=== PATIENT | female | born 1985 | race Caucasian/White ===

== ENCOUNTER 2017-05-20 01:26 | Emergency (ER) | payer OTHER ==
[~2017-05-20] VITALS: Ht 170.2 cm; Wt 77.1 kg
[~2017-05-20 01:26] MED LIST: BACTRIM DS 8001 TAB PO; CLEOCIN HCL300 M1 PO; GEODON 40MG CAP40 MG PO; TEGRETOL200 MG PO; TRAMADOL HCL50 M1 PO
--- NOTE | 2017-05-20 03:19 | ED HEADACHE COMPLAINT ---
History of Present Illness General Chief Complaint: Headache Stated Complaint: PT C/O MIGRAINE HX OF SAME Source: patient Exam Limitations: clinical condition Vital Signs & Intake/Output Vital Signs & Intake/Output ED Intake and Output 05/21 0000 05/20 1200 Intake Total Output Total Balance Patient 170 lb Weight Weight Reported by Patient Measurement Method Allergies Coded Allergies: Penicillins (Severe, ANAPHYLAXIS 04/23/16) Reconcile Medications Carbamazepine (Tegretol) 200 MG TAB 1,200 MG PO QPM MENTAL HEALTH (Reported) Clindamycin HCl (Cleocin HCl) 300 MG CAPSULE 1 CAP PO Q6 CELLULITIS Tramadol HCl 50 MG TABLET 1 TAB PO Q6P PRN LEG PAIN Ziprasidone Hydrochloride (Geodon 40MG Cap) 40 MG CAP 80 MG PO QPM MENTAL HEALTH (Reported) Triage Note: PT TO ED C/O 08/18 MIGRAINE. PT STATES SHE HAS HX OF MIGRAINES. PT STATES SHE TOOK IMMITREX THIS EVENING AND IBUPROFEN WITHOUT RELIEF. PT C/O NAUSEA AND VOMITING TONIGHT. +PHOTOSENSITIVITY. Triage Nurses Notes Reviewed? yes : No Patient currently breastfeeds: No HPI: 31 yo F presents to the ED for evaluation of migraine headache. She had been experiencing a constant headache since 5pm yesterday. She has a history of experiencing these headaches several times a week. She denies any sensation of aura prior to getting her symptoms and any relation of her menses to the headaches. She complains the pain has been getting worse, non radiating and bilateral. She is experiencing photophobia with light and movement aggravating her headache. She has taken Imitrex and ibuprofen but that hasn't provided her any relief. She reports experiencing a little nausea and had an episode of vomitting an hour ago. (ALICIA LOWE MD) Past History Travel History Traveled to [place] past 21 day No Medical History Any Pertinent Medical History? 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 No (ALICIA LOWE MD) Review of Systems Review of Systems Constitutional: Reports: no symptoms. Respiratory: Reports: no symptoms. Cardiovascular: Reports: no symptoms. Gastrointestinal/Abdominal: Reports: no symptoms. Neurological/Psychological: Reports: headache. (ALICIA LOWE MD) Physical Exam Physical Exam General Appearance: well developed/nourished, moderate distress Head: atraumatic, normal appearance Eyes: Bilateral: photophobia. Cranial Nerves: normal hearing, normal speech Core Measures Severe Sepsis Present: No Septic Shock Present: No (ALICIA LOWE MD) Progress Differential Diagnosis: migraine Plan of Care: Given toradol and phenergen. Patient is responding well to it. (ALICIA LOWE MD) Departure Departure Disposition: HOME OR SELF CARE Condition: Stable Clinical Impression Primary Impression: Migraine Qualifiers: Migraine type: without aura Status migrainosus presence: without status migrainosus Referrals: ALON MATA MD PATIENT HAS NO PRIMARY CARE DR (PCP/Family) Additional Instructions: Follow up with Dr Mata for proper evaluation of migraine headaches. Return for any worsening symptoms or concerns Departure Forms: Customer Survey General Discharge Information (ALICIA LOWE MD) Resident Co-Sign Statement Statement: ED Attending supervision documentation- [x] I saw and evaluated the patient. I have also reviewed all the pertinent lab results and diagnostic results. I agree with the findings and the plan of care as documented in the Resident's documentation. [] I have reviewed the ED Record and agree with the Resident's documentation. [] Additions or exceptions (if any) to the Resident's note and plan are summarized below: [] (TRACI BAUTISTA,JAVON Thompson) ED Attending Observation Initial Observation Note: I have seen and personally examined MICHELET TANG on 05/20/17 at 0523. I agree with the current emergency department documentation. The disposition (admission or discharge) is uncertain at this time, she needs a period of observation for the following reason(s): The ED Nurse caring for this patient has been personally informed as to what the patient is being observed for. (ALICIA LOWE MD)
[2017-05-20 05:36] VITALS: BP 143/67
== END 2017-05-20 05:37 ==
LOC: ERH 01:26
DX: G43.909 Migraine, unspecified, not intractable, without status migrainosus (principal)
CPT/HCPCS: 96372; J1885; J2550

== ENCOUNTER 2017-10-29 04:32 | Inpatient (IN) | payer OTHER ==
[~2017-10-29] VITALS: Ht 162.6 cm; Wt 78.9 kg
[~2017-10-29 04:32] MED LIST changes: +CHLORDIAZEPOXID25 M3 PO; +GEODON20 M1 PO; +LITHIUM CARBON300 M5 PO; +NICORELIEF2 MG PO; +NICOTINE PATCH1 EAC3 TOP; +TEGRETOL200 M1; -TEGRETOL200 MG PO
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
[2017-10-29 05:04] LABS: ABSOLUTE BASOPHIL COUNT 0.1 /CUMM (0.0-0.2); ABSOLUTE EOSINOPHIL COUNT 0.1 /CUMM (0.0-0.7); ABSOLUTE GRANULOCYTE CT 12.6 /CUMM (1.4-6.5); ABSOLUTE MONOCYTE COUNT 1.1 /CUMM (0.10-0.60); BASOPHIL % 0.4 % (0.0-2.0); EOSINOPHIL % 0.7 % (0-5); HEMATOCRIT 39.8 % (37-47); MEAN CORPUSCULAR HGB 28.1 PG (27.0-31.0); MEAN CORPUSCULAR HGB CONC 33.8 G/DL (33.0-37.0); MEAN PLATELET VOLUME 7.9 FL (7.4-10.4); PLATELET COUNT 472 /CUMM (130-400); RBC DISTRIBUTION WIDTH 14.4 % (11.5-14.5); WHITE BLOOD CELL COUNT 16.9 /CUMM (4.8-10.8)
[2017-10-29 05:06] LABS: GRANULOCYTE % 74.5 % (42.2-75.2)
--- NOTE | 2017-10-29 05:33 | RADIOLOGY REPORT ---
EXAMINATION: CHEST 1 VIEW CLINICAL INFORMATION: Trauma. Fracture. COMPARISON: October 07, 2017. TECHNIQUE: An AP view of the chest is provided. FINDINGS: The cardiac silhouette is not enlarged. The mediastinal and hilar contours are unremarkable. There are neither pleural effusions nor pneumothoraces. There are no consolidations. The osseous structures are unremarkable. IMPRESSION: No evidence for acute disease.
--- NOTE | 2017-10-29 05:33 | RADIOLOGY REPORT ---
EXAMINATION: LEFT ANKLE 3 VIEWS CLINICAL INFORMATION: Left ankle pain. COMPARISON: None. TECHNIQUE: AP, lateral, oblique views of the left ankle were obtained. FINDINGS: There are oblique distal left tibial and fibular fractures. Alignment is adequate. There is soft tissue swelling about the ankle. There is no ankle joint effusion. IMPRESSION: Distal left tibial and fibular fractures.
--- NOTE | 2017-10-29 06:27 | RADIOLOGY REPORT ---
EXAMINATION: XR TIBIA AND FIBULA, LEFT CLINICAL INFORMATION: Pain after fall. COMPARISON: Same day left ankle radiographs. TECHNIQUE: AP and lateral views of the left tibia and fibula were obtained. FINDINGS: Partially visualized is the known distal left tibial fracture. The fibular fracture is not included on this view. An overlying cast is in place. IMPRESSION: Adequate alignment of distal left tibial fracture with overlying cast in place.
--- NOTE | 2017-10-29 06:30 | CT SCAN REPORT ---
EXAMINATION: CT HEAD WITHOUT CONTRAST CLINICAL INFORMATION: Pain following trauma. COMPARISON: October 08, 2017. TECHNIQUE: Contiguous axial images of the brain were obtained without IV contrast. DLP: 724 mGy-cm. FINDINGS: There are no pathologic extra-axial fluid collections. The lateral, third, fourth ventricles are nondilated and concordant with the appearance of the sulci. There is no evidence for acute intraparenchymal hemorrhage or infarct. There is neither mass nor mass effect. There is no shift of midline structures. There is mild mucosal thickening to the left maxillary sinus. There is patchy ethmoid sinus opacification. The paranasal sinuses and mastoid air cells are otherwise clear. There are no osseous lesions. IMPRESSION: No evidence for acute intracranial injury.
--- NOTE | 2017-10-29 08:45 | Cons- Orthopedic ---
Torrey Wei 10/29/17 0806: General Information and HPI Consulting Request Date of Consult: 10/29/17 Requested By: Dr. Tolentino in ER Reason for Consult: Left distal tib/fib fx Source of Information: patient Exam Limitations: intoxication History of Present Illness: This is a 32 year-old female with a history of bipolar and recent hospitalization for suicidal attempt with Tegretol overdose who presents to the emergency room with ankle pain status post fall secondary to possible seizure. Patient reports she was admitted roughly 3 weeks ago at [place] and transferred to [place] for suicial attempt and was started on [place], however due to elevated levels, patient was instructed not to take [place] for 2 days. She reports seizure-like activity and multiple falls since her discharge and states while she smoking a cigarete at around 1:00 this morning, she had another seizure-like episode where she fell backwards then fell forward landing on her ankle. She states she could not get up and was brought in by EMS from her mothers house. She also reports snorting a bag of heroin at 5:30 last night. She denies taking any other illict drugs. En route to the hospital, patient had a tonic-clonic seizure according to EMS. She states when she was 14 years-old she had a known seizure after taking risperidone for depression. She reports ankle pain, which is well controlled. Denies any numbness or tingling. Allergies/Medications Allergies: Coded Allergies: Penicillins (Severe, ANAPHYLAXIS 04/23/16) Home Med List: Chlordiazepoxide HCl 25 MG CAPSULE 50 MG PO Q6 WITHDRAWAL [place] Carbonate 300 MG TABLET 1 TAB PO TID BIPOLAR DISORDER Nicotine (Nicotine Patch) 21 MG/24 HOUR PATCH.TD24 21 MG TOP DAILY SMOKING CESSATION Nicotine (Nicorelief) 2 MG GUM 2 MG PO Q2P PRN tobacco craving Tramadol HCl 50 MG TABLET 1 TAB PO Q6P PRN LEG PAIN Ziprasidone Hydrochloride (Geodon 40MG Cap) 40 MG CAP 80 MG PO QPM MENTAL HEALTH (Reported) Ziprasidone Hydrochloride (Geodon) 20 MG CAPSULE 20 MG PO BID PRN AGITAT/ HALLUCINATION/IRRITABIL Twice daily PRN. Hold for prolonged QTc. Current Medications: Current Medications Sig/Wanda Start time Last Medication Dose Route Stop Time Status Admin Acetaminophen 1,000 MG ONCE ONE 10/29 0500 DC 10/29 N/A 1 UNIT IV 10/29 Acetaminophen 0 .STK-MED ONE 10/29 455 DC IV Morphine Sulfate 4 MG ONCE ONE 10/29 0545 DC 10/29 IV 10/29 546 0539 Morphine Sulfate 0 .STK-MED ONE 10/29 530 DC .ROUTE Past History Medical History Neurological: migraine, seizure EENT: NONE Cardiovascular: NONE Respiratory: NONE Gastrointestinal: NONE Hepatic: NONE Renal: NONE Musculoskeletal: NONE Psychiatric: anxiety, bipolar disease, depression, insomnia Endocrine: NONE Blood Disorders: NONE Cancer(s): NONE 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: 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 Surgical History Pertinent Surgical History: none Psychosocial History Smoking Status: Current Some Day Smoker Illicit Drug Use: heroin Exam & Diagnostic Data Vital Signs and I&O Vital Signs Date Time Temp Pulse Resp B/P B/P Pulse O2 O2 Flow FiO2 Mean Ox Delivery Rate 10/29 0542 96.5 99 20 134/65 98 Room Air 10/29 045 100 Room Air Room Air 10/29 435 96.1 120 20 176/101 100 Room Air Room Air Intake & Output 10/29 1600 10/29 0800 10/29 0000 10/28 1600 10/28 0800 10/28 0000 Intake Total Output Total Balance Patient 200 lb Weight Physical Exam: Gen: Post-ictal, semi-confused in NAD Cardiac: S1S2 noted Lungs: Fair inspiratory effort, CTAB Abd: Soft, nondistended, nontender Ext: LLE with sugartong splint and sheree wrap in place, warm and soft, able to wiggle toe without discomfort. RLE is without edema or calf tenderness. Last 24 Hours of Labs: Laboratory Tests 10/29 10/29 0810 0535 Chemistry Troponin I Pending Toxicology Urine Opiates Screen (>2000 NG/ML) > 4000.00 H Methadone Screen (>300 NG/ML) > 735 H Barbiturate Screen (>200 NG/ML) < 60 Ur Phencyclidine Scrn (>25 NG/ML) 7.00 Amphetamines Screen (>1000 NG/ML) < 100 U Benzodiazepines Scrn (>200 NG/ML) 273 H Urine Cocaine Screen (>300 NG/ML) > 1000 H Urine Cannabis Screen (>50 NG/ML) < 5.00 10/295 0436 Chemistry Sodium (137 - 145 mmol/L) 141 Potassium (3.5 - 5.1 mmol/L) 4.7 Chloride (98 - 107 mmol/L) 102 Carbon Dioxide (22 - 30 mmol/L) 17 L Anion Gap (5 - 16) 21 H BUN (7 - 17 mg/dL) 19 H Creatinine (0.5 - 1.0 mg/dL) 0.6 Estimated GFR (>60 ml/min) > 60 BUN/Creatinine Ratio (7 - 25 %) 31.7 H Glucose (65 - 99 mg/dL) 137 H Calcium (8.4 - 10.2 mg/dL) 10.5 H Total Bilirubin (0.2 - 1.3 mg/dL) 0.5 AST (14 - 36 U/L) 36 ALT (9 - 52 U/L) 20 Alkaline Phosphatase (<127 U/L) 61 Total Protein (6.3 - 8.2 g/dL) 8.9 H Albumin (3.5 - 5.0 g/dL) 4.8 Globulin (1.9 - 4.2 gm/dL) 4.1 Albumin/Globulin Ratio (1.1 - 2.2 %) 1.2 Prolactin (3.0 - 18.6 ng/mL) 148.0 H Hematology CBC w Diff MAN DIFF ORDERED WBC (4.8 - 10.8 /CUMM) 16.9 H RBC (4.20 - 5.40 /CUMM) 4.80 Hgb (12.0 - 16.0 G/DL) 13.5 Hct (37 - 47 %) 39.8 MCV (81.0 - 99.0 FL) 83.0 MCH (27.0 - 31.0 PG) 28.1 RDW (11.5 - 14.5 %) 14.4 Plt Count (130 - 400 /CUMM) 472 H MPV (7.4 - 10.4 FL) 7.9 Gran % (42.2 - 75.2 %) 74.5 Lymphocytes % (20.5 - 51.1 %) 18.0 L Monocytes % (1.7 - 9.3 %) 6.4 Eosinophils % (0 - 5 %) 0.7 Basophils % (0.0 - 2.0 %) 0.4 Absolute Granulocytes (1.4 - 6.5 /CUMM) 12.6 H Segmented Neutrophils (42.2 - 75.2 %) 78 H Absolute Lymphocytes (1.2 - 3.4 /CUMM) 3.0 Lymphocytes (20.5 - 51.1 %) 17 L Monocytes (1.7 - 9.3 %) 5 Absolute Monocytes (0.10 - 0.60 /CUMM) 1.1 H Absolute Eosinophils (0.0 - 0.7 /CUMM) 0.1 Absolute Basophils (0.0 - 0.2 /CUMM) 0.1 Platelet Estimate (ADEQUATE) INCREASED Normocytic RBCs VERIFIED Normochromic RBCs VERIFIED PUBS MCHC (33.0 - 37.0 G/DL) 33.8 Other Body Source Fld Total RBCs Counted (%) 100 Toxicology [place] (0.6 - 1.2 mmol/L) 1.0 Serum Alcohol (<10 MG/DL) < 10.0 Urines Urine Test NEGATIVE Imaging Results: SERVICE DATE: 10/29/17 EXAM TYPE: RAD - XRY-ANKLE 3 OR MORE VIEWS L EXAMINATION: LEFT ANKLE 3 VIEWS CLINICAL INFORMATION: Left ankle pain. COMPARISON: None. TECHNIQUE: AP, lateral, oblique views of the left ankle were obtained. FINDINGS: There are oblique distal left tibial and fibular fractures. Alignment is adequate. There is soft tissue swelling about the ankle. There is no ankle joint effusion. IMPRESSION: Distal left tibial and fibular fractures. SERVICE DATE: 10/29/17 EXAM TYPE: RAD - XRY-PORTABLE CHEST XRAY EXAMINATION: CHEST 1 VIEW CLINICAL INFORMATION: Trauma. Fracture. COMPARISON: October 07, 2017. TECHNIQUE: An AP view of the chest is provided. FINDINGS: The cardiac silhouette is not enlarged. The mediastinal and hilar contours are unremarkable. There are neither pleural effusions nor pneumothoraces. There are no consolidations. The osseous structures are unremarkable. IMPRESSION: No evidence for acute disease. SERVICE DATE: 10/29/17 EXAM TYPE: RAD - [id number], LEFT EXAMINATION: XR TIBIA AND FIBULA, LEFT CLINICAL INFORMATION: Pain after fall. COMPARISON: Same day left ankle radiographs. TECHNIQUE: AP and lateral views of the left tibia and fibula were obtained. FINDINGS: Partially visualized is the known distal left tibial fracture. The fibular fracture is not included on this view. An overlying cast is in place. IMPRESSION: Adequate alignment of distal left tibial fracture with overlying cast in place. SERVICE DATE: 10/29/17 EXAM TYPE: CAT - CT HEAD WO IV CONTRAST EXAMINATION: CT HEAD WITHOUT CONTRAST CLINICAL INFORMATION: Pain following trauma. COMPARISON: October 08, 2017. TECHNIQUE: Contiguous axial images of the brain were obtained without IV contrast. DLP: 724 mGy-cm. FINDINGS: There are no pathologic extra-axial fluid collections. The lateral, third, fourth ventricles are nondilated and concordant with the appearance of the sulci. There is no evidence for acute intraparenchymal hemorrhage or infarct. There is neither mass nor mass effect. There is no shift of midline structures. There is mild mucosal thickening to the left maxillary sinus. There is patchy ethmoid sinus opacification. The paranasal sinuses and mastoid air cells are otherwise clear. There are no osseous lesions. IMPRESSION: No evidence for acute intracranial injury. Assessment/Plan Assessment/Plan This is a 32 year-old female with a history of bipolar disorder, suicidal attempt and substance abuse who presents with left distal tibular/fibula fracture status post fall due to possible underlying seizure disorder vs lithium toxicity. She had a tonic-clonic seizure en route to [facility]. Fracture was reduced and splinted in ER, however she is at risk for compartment syndrome and requires surgical intervention. Urine toxicity confirms polysubstance abuse including opiates and cocaine. Admit to medicine Once cleared, proceed to OR for ORIF of left tib/fib Keep splint in place NWB of LLE Neuro checks q6 for compartment syndrome Bates for comfort Keep NPO on IVF Will continue to closely follow D/w Dr. Cordova Problem List: 1. Cocaine abuse 2. Tibia/fibula fracture, shaft 3. Heroin abuse 4. Seizure Consult Acknowledgment - Thank you for your consult request. Nicole Cordova MD 10/29/17 1151: Assessment/Plan Consult Acknowledgment - Thank you for your consult request. Attending MD Review Statement Attending Statement Attending MD Statement: examined this patient, discuss w/resident/PA/COOK RELIEF, agreed w/resident/PA/COOK RELIEF, reviewed images Attending Assessment/Plan: Patient seen and examined. Agree with PA assessment. Splint to LLE, elevated on several pillows. Patient resting comfortably but has intermittent spasms causing her whole body to react, resulting in leg pain. She says she has been having these "spasms" for a day or so, and that is what caused her to fall last night. She reports polysubstance abuse, saying she snorted a bag of "dope" yesterday. Does not recall cocaine use, but says it was probably mixed in the heroin she snorted. Recently discharge from inpatient program at [facility]. We discussed her injury and surgical plan. Also discussed non-operative treatment in a long leg cast, but would recommend surgical stabilization given the fracture pattern, her age, and activity level. Discussed risk for compartment syndrome and need for urgent surgical intervention should that occur. Will delay surgery given numerous drugs currently in her system. Per discussion with anesthesia, she is a risk of hemodynamic instability given recent cocaine use. Also pending neurology and psychiatic evaluation. On exam, she is resting comfortable. Splint in place, clean and dry. Able to actively flex/extend great toe with minimal pain; no pain with passive extension of great toe. SILT over toes and first webspace. Will continue to monitor; q3hr compartment checks. Pain control. Elevation and icing of left leg, do not remove splint. NWB LLE Please keep NPO should patient patient need urgent surgical intervention for compartment syndrome. Tentative plan for OR tomorrow for tibial nail pending medical optimization.
--- NOTE | 2017-10-29 09:32 | History & Physical ---
Shanika Reyna 10/29/17 0857: General Information and HPI MD Statement: I have seen and personally examined MICHELET TANG and documented this H&P. The patient is a 32 year old F who presented with a patient stated chief complaint of fall and seizure Source of Information: patient Exam Limitations: intoxication History of Present Illness: Patient is a 32-year-old woman with past medical history significant for bipolar disease, recently hospitalized for suicidal attempt on Tegretol overdose, history of opioid abuse/dependence on methadone, history of benzos and cocaine abuse presented to the ER through an ambulance after a fall and tonic- clonic seizure. As mentioned above patient was recently admitted at [facility] after suicidal attempt on Tegretol overdose remain in the facility for almost 3 weeks. Patient was started on lithium about 6 weeks ago, and that was discontinued before discharge due to elevated levels and was instructed to restart the medication after getting the levels checked. Patient was discharged home yesterday. Patient mentioned that she has been having jerking episodes/seizure-like activity for a long time. Yesterday she tripped and fell backwards after jerking episode. Denied any dizziness lightheadedness loss of consciousness before and after the fall. Pt could not get up and was brought in by EMS from her mothers house, on her way to the ER patient had one episode of tonic-clonic seizure (of which patient had no recollection).On inquiring more , pt reported that she had seizure-like activity while she was on risperidone. Patient also confessed that she used a bag of heroin at around 5:30 last night, denied any other illicit drug use. Will. Upon arrival in the ER patient was awake with wobbly speech and incontinent of urine, speech was more clear afterwards. She had severe left lower extremity pain. X-ray of the left ankle revealed distan tibial and fibular fractures. Other review of system is negative. Denied any chest discomfort or palpitations denied any nausea vomiting abdominal discomfort denied any urinary bowel habit changes. Allergies/Medications Allergies: Coded Allergies: Penicillins (Severe, ANAPHYLAXIS 04/23/16) Home Med list Chlordiazepoxide HCl 25 MG CAPSULE 50 MG PO Q6 WITHDRAWAL [place] Carbonate 300 MG TABLET 1 TAB PO TID BIPOLAR DISORDER Nicotine (Nicotine Patch) 21 MG/24 HOUR PATCH.TD24 21 MG TOP DAILY SMOKING CESSATION Nicotine (Nicorelief) 2 MG GUM 2 MG PO Q2P PRN tobacco craving Tramadol HCl 50 MG TABLET 1 TAB PO Q6P PRN LEG PAIN Ziprasidone Hydrochloride (Geodon 40MG Cap) 40 MG CAP 80 MG PO QPM MENTAL HEALTH (Reported) Ziprasidone Hydrochloride (Geodon) 20 MG CAPSULE 20 MG PO BID PRN AGITAT/ HALLUCINATION/IRRITABIL Twice daily PRN. Hold for prolonged QTc. 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 EENTM: Denies: blurred vision, double vision, visual changes. Respiratory: Denies: hemoptysis, orthopnea, short of breath. GI: Denies: abdominal pain, bloating, constipation, diarrhea. Genitourinary: Denies: dysuria, frequency, hematuria, hesitation. Musculoskeletal: Denies: gout, joint pain, joint swelling. Skin: Denies: change in skin color, change in hair/nails, dryness. Neurological/Psychological: Denies: ataxia, cognitive dysfunction, confusion. Hematologic/Endocrine: Denies: bruising, bleeding, polyuria. Exam & Diagnostic Data Last 24 Hrs of Vital Signs/I&O Vital Signs Date Time Temp Pulse Resp B/P B/P Pulse O2 O2 Flow FiO2 Mean Ox Delivery Rate 10/29 0542 96.5 99 20 134/65 98 Room Air 10/29 0454 100 Room Air Room Air 10/29 0435 96.1 120 20 176/101 100 Room Air Room Air Intake & Output 10/29 1600 10/29 0800 10/29 0000 Intake Total Output Total Balance Patient 200 lb Weight Physical Exam General Appearance Alert, Oriented X3 Skin No Rashes, No Breakdown HEENT Atraumatic, PERRLA, EOMI Neck Supple, No JVD Lymphatic Axillary nl, Cervical nl Cardiovascular Regular Rate, Normal S1, Normal S2 Lungs Clear to Auscultation, Normal Air Movement Abdomen Normal Bowel Sounds, Soft, No Tenderness Neurological Normal Gait, Normal Speech, Strength at 5/5 X4 Ext Extremities No Clubbing, No Edema Assessment/Plan Assessment: Patient is a 32-year-old woman with past medical history significant for bipolar disease, recently hospitalized for suicidal attempt on Tegretol overdose, history of opioid abuse/dependence on methadone, history of benzos and cocaine abuse presented to the ER through an ambulance after a fall and tonic- clonic seizure. Vitals on admission temperature 96.1, pulse 120, respiratory 20, blood pressure 117/101 on room air Pertinent labs leukocytosis 16.9 without any bandemia H&H stable 13.5/39.8, elevated platelet count 472, normal sodium and potassium levels, elevated anion gap of 21, corrected calcium level:9.9, elevated prolactin levels 148 Urine toxicology positive for opioids(used heroin yesterday), methadone, but it has been sent cocaine. EKG showed normal sinus rhythm with QTC of 463, first set of troponin negative. Head CT scan :No evidence for acute intracranial injury. Chest x-ray:No evidence for acute disease X-ray of ankle :Distal left tibial and fibular fractures. Assessment and plan Patient is a 32-year-old woman with past medical history significant for bipolar disease, recently hospitalized for suicidal attempt on Tegretol overdose, history of opioid abuse/dependence on methadone, history of benzos and cocaine abuse presented to the ER through an ambulance after a fall and tonic- clonic seizure Problem list: 1. left Distal left tibial and fibular fractures status post mechanical fall 2. History of recent suicidal attempt on Tegretol overdose. 3. History of bipolar disease 4. History of opioid abuse/dependence on methadone. 5. History of cocaine and benzodiazepines abuse. 6. History of anxiety and depression plan 1. left Distal left tibial and fibular fractures status post mechanical fall * We'll admit the patient to general floor. * Fracture has been reduced in the ER,Patient has been evaluated by orthopedic surgery, as patient is at high risk of abutment syndrome she requires surgical intervention, however surgery won't be done as her urine toxicology is positive for polysubstance abuse including heroin, cocaine and benzodiazepines. * Patient will be managed medically on the floors for now and once cleared will have ORIF of left tib/fib. * Continue management as per orthopedic recommendations. * Keep splint and placed, nonweightbearing of the lower left extremity, continue with neurochecks every 6 hours for compartment syndrome. * We'll keep the patient nothing by mouth for now. * Check coags, CK level * Continue with IV fluids. * Adequate pain control with scheduled IV Tylenol, avoid any opioids. 2. Tonic-clonic seizure(questionable lithium toxicity/polysubstance abuse) * Obtain EEG * Neurology consult has been obtained to Dr. Robbins, will follow the recommendations. * Maintain seizure and aspiration precautions 3.History of recent suicidal attempt on Tegretol overdose with history of bipolar disease. * Psych consult has been obtained for further recommendations. 4. History of opioid abuse/dependence on methadone. * [facility] * Continue methadone 90 mg daily DVT prophylaxis with Lovenox Moderate to severe pain controlled with Tylenol Patient is full code As Ranked By This Provider Problem List: 1. Methadone dependence 2. Seizure 3. Heroin abuse 4. Cocaine abuse 5. Tibia/fibula fracture, shaft Qualifiers Encounter type: initial encounter Fracture type: closed Laterality: left Qualified Codes: S82.202A - Unspecified fracture of shaft of left tibia, initial encounter for closed fracture; S82.402A - Unspecified fracture of shaft of left fibula, initial encounter for closed fracture Core Measures/Misc (07/26) Acute Coronary Syndrome ACS Diagnosis: No Congestive Heart Failure Congestive Heart Failure Diagnosis No Cerebrovascular Accident CVA/TIA Diagnosis: No VTE (View Protocol) VTE Risk Factors No risk factors No Mechanical VTE Prophylaxis d/t LowRisk-No Interven Req'd No VTE Pharm Prophylaxis d/t LowRisk-No Interven Req'd Sepsis (View protocol) Sepsis Present: No Resident Review Statement Resident Statement: examined this patient Gaston Poe MD 10/30/17 1213: Attending MD Review Statement Attending Statement Attending MD Statement: examined this patient, discuss w/resident/PA/HOUSEKEEPER MANAGER, agreed w/resident/PA/HOUSEKEEPER MANAGER, reviewed EMR data (avail), reviewed images, amended to note Attending Assessment/Plan: The patient is a 32 yo female with h/o bipolar disorder, opioid abuse (on chronic methadone), h/o benzodiazepine and cocaine abuse who was recently discharged from [facility] in [place] after suicide attempt and Tegretol overdose (approximately 3 week stay). She had been discharged the day prior and experienced a seizure and fell backwards resulting in fractures of the left ankle/distal fibula/tibia. She admitted that she had also used a bag of heroin at 5:30 pm the evening prior. In the ED she was initially hypertensive and tachycardic which improved after Methadone and morphine. She noted significant pain in the ankle and distal left leg. No dyspnea, chest pain. Had distant h/o childhood seizure. She had been on lithium as well and was concerned that this may have precipitated her seizure. Physical Exam: VS: T 96.1, P 120-99, R 20, BP 176/101-134/65, PO 100% RA HEENT: eyes- PERRLA, EOMI bisi- normal mucosa Neck: no adenopathy or bruits Chest: clear Cor: RRR nl S1, S2 w/o murm Abd: BS+, soft, NT Ext: LLE in splint (seen by ortho), no edema RLE, pulses 2+ Neuro: alert & oriented x 3, non-focal exam (at time of my exam) Labs/Tests: as above Impression/Plan: #S/P Seizure- as above, patient experienced seizure resulting in fall. Does not give h/o seizure except as child. Does have h/o benzo abuse, however was just discharged from [facility] after 3 weeks stay suggesting against caused by benzo withdrawal. Plan: Admit to medical floor. Seizure precautions. Neuro consult- EEG. #S/P Fractures Left Ankle/Distal Tibia/Fibula- seen by orthopedics and will need ORIF. Concern regarding potential compartment syndrome developing. Plan: Discussed with ortho and will defer surgery until tomorrow to document stable medically. Watch carefully for compartment syndrome overnight. #H/O Opioid Dependence/Substance Abuse- admitted to using heroin x 1 since discharge. Plan: Continue usual dose of Methadone and will Morphine for pain due to fx at present. #Bipolar Disorder- patient concerned regarding lithium. Plan: Psychiatry consult regarding meds. Consider alternative to [place].
[2017-10-29 16:34] VITALS: BP 154/92
--- NOTE | 2017-10-29 17:02 | Admission Certification ---
Admission Certification Certification Statement - As attending physician, I certify that at the time of - admission, based on clinical presentation, severity of - symptoms, need for further diagnostic testing and - therapeutic interventions, and risk of adverse outcomes - without in-hospital treatment, in my clinical assessment, - this patient requires an acute hospital stay for a minimum - of two nights or longer. I have also considered psychsocial - factors such as support system, advanced age, financial - issues, cognitive issues, and failed out-patient treatments, - past re-admission history, safety of patient, and lack of - compliance as applicable. Specific rationale supporting this admission is: The patient presents with acute LE fractures requiring surgery, new onset seizure, IV heroin use, needs admission to evaluate seizures, orthopedic consult and surgery.
--- NOTE | 2017-10-29 19:09 | RADIOLOGY REPORT ---
EXAMINATION: XR TIBIA AND FIBULA, LEFT XR ANKLE, LEFT CLINICAL INFORMATION: Status post splinting of left tibial and fibular fractures. COMPARISON: X-rays from earlier in the same day on 10/29/2017. TECHNIQUE: 2 views of the left tibia and fibula were obtained. 3 views of the left ankle. FINDINGS: A splint is in place. Alignment of the oblique distal diaphyseal fracture through the tibia is slightly improved. Fracture fragments are now offset by approximately 6 mm, compared to 16 mm previously. There is very mild varus angulation and ventral apex angulation across the fracture site. A nondisplaced spiral oblique fracture extends inferiorly into the lower tibia involving the posterior malleolus. A comminuted fracture involving the distal fibula is fairly similar in appearance with complete displacement of fracture fragments which are also somewhat overriding. Diffuse soft tissue swelling is again noted. The distal fibular fracture fragment is posterior and medial relative to the occipital fragment proximal fracture fragment. On the lateral projection, the posterior portion of the ankle mortise is abnormally widened. Evaluation for a joint effusion is limited due to overlying splint cast material. There is a questionable chronic fracture deformity involving the medial malleolus as well. The knee joint appears normal. The proximal tibia and fibula are unremarkable. No visible knee joint effusion is seen. IMPRESSION: Status post splinting for fractures as described. Improved alignment of fracture fragments with some angulation in the distal tibia. Abnormal widening of the ankle mortise posteriorly with a fracture through the posterior malleolus. Comminuted fracture with displacement of fracture fragments involving the distal fibula as described. Diffuse soft tissue swelling.
--- NOTE | 2017-10-29 19:44 | ELECTROENCEPHALOGRAM REPORT ---
Electroencephalogram Report Electroencephalogram Results Date of service: 10/29/17 Attending MD: Gaston Poe MD Ash Collector: Judy Castillo EEG Number: [id number] Test Utilizes: 10-20 system, 21 lead 18 channel digital recording Pertinent Hx/Physical/Neuro Findings/Clin Diagnosis: seizure Inpatient Medications: Current Medications Sig/Wanda Start time Last Medication Dose Route Stop Time Status Admin Acetaminophen 1,000 MG Q6H 10/29 1530 AC 10/29 IV 1708 Acetaminophen 650 MG Q6P PRN 10/29 1015 CAN PO Acetaminophen 0 .STK-MED ONE 10/29 0919 DC IV Acetaminophen 1,000 MG TID 10/29 0900 DC 10/29 IV 0921 Acetaminophen 1,000 MG ONCE ONE 10/29 0500 DC 10/29 N/A 1 UNIT IV 10/29 0514 0455 Acetaminophen 0 .STK-MED ONE 10/29 0455 DC IV Dextrose/Sodium 1,000 ML Q13H 10/29 1000 AC 10/29 Chloride IV 1052 Enoxaparin Sodium 40 MG DAILY 10/30 1000 AC SC Ibuprofen 600 MG Q6P PRN 10/29 1015 AC PO Methadone HCl 90 MG DAILY 10/29 1000 AC 10/29 PO 0921 Methadone HCl 0 .STK-MED ONE 10/29 0919 DC PO Morphine Sulfate 1 MG Q4-PRN PRN 10/29 1700 AC 10/29 IV 1707 Morphine Sulfate 0 .STK-MED ONE 10/29 1421 DC .ROUTE Morphine Sulfate 1 MG ONE ONE 10/29 1415 DC 10/29 IV 10/29 1416 1423 Morphine Sulfate 4 MG ONCE ONE 10/29 0545 DC 10/29 IV 10/29 0546 0539 Morphine Sulfate 0 .STK-MED ONE 10/29 0530 DC .ROUTE Sodium Chloride 1,000 ML Q13H 10/29 0930 DC 10/29 IV 10/31 0029 0921 Interpretation: EEG in wake state Background is 8 cps activity posteriorly Muscle artifact is seen frontally Intermittent 5-7 cps dysrhythmic activity is present throughout the recording. No epileptic activity is seen Photoc stim: no abnormalities Impression: EEG shows dysrhythmic activity wihch is of no certain clinical significance
[2017-10-29 23:14] VITALS: BP 132/78
--- NOTE | 2017-10-30 07:26 | PN- Housestaff ---
Subjective Follow-up For: hip fracture polysubstance abuse Subjective: I have seen and examined the patient. NPO for surgery. pain is moderately controlled. Review of Systems Constitutional: Reports: see HPI. Objective Last 24 Hrs of Vital Signs/I&O Vital Signs Date Time Temp Pulse Resp B/P B/P Pulse O2 O2 Flow FiO2 Mean Ox Delivery Rate 10/30 0728 98.3 72 18 128/69 97 Room Air 10/29 2314 98.1 71 20 132/78 98 Room Air 10/29 1634 98.4 77 18 154/92 99 10/29 1120 97.6 83 18 120/84 97 Room Air Intake & Output 10/30 0800 10/30 0000 10/29 1600 Intake Total 725 Output Total 750 Balance 725 -750 Intake, IV 725 Intake, Oral 0 Output, Urine 750 Patient 78.925 kg Weight Weight Reported by Patient Measurement Method Physical Exam General Appearance: Alert, Oriented X3, Cooperative Other Physical Findings: Skin No Rashes, No Breakdown HEENT Atraumatic, PERRLA, EOMI Neck Supple, No JVD Lymphatic Axillary nl, Cervical nl Cardiovascular Regular Rate, Normal S1, Normal S2 Lungs Clear to Auscultation, Normal Air Movement Abdomen Normal Bowel Sounds, Soft, No Tenderness left on the sprint Current Medications: Current Medications Sig/Wanda Start time Last Medication Dose Route Stop Time Status Admin Acetaminophen 1,000 MG Q6H 10/29 1530 AC 10/30 IV 0902 Dextrose/Sodium 1,000 ML Q13H 10/29 1000 AC 10/30 Chloride IV 0109 Enoxaparin Sodium 40 MG DAILY 10/30 1000 AC 10/30 SC 0901 Ibuprofen 600 MG Q6P PRN 10/29 1015 AC 10/30 PO 0345 Methadone HCl 90 MG DAILY 10/29 1000 AC 10/30 PO 0902 Morphine Sulfate 1 MG Q4-PRN PRN 10/29 1700 10/30 IV 0901 Morphine Sulfate 0 .STK-MED ONE 10/29 1421 DC .ROUTE Morphine Sulfate 1 MG ONE ONE 10/29 1415 DC 10/29 IV 10/29 1416 1423 Assessment/Plan Assessment: Patient is a 32-year-old woman with past medical history significant for bipolar disease, recently hospitalized for suicidal attempt on Tegretol overdose, history of opioid abuse/dependence on methadone, history of benzos and cocaine abuse presented to the ER through an ambulance after a fall and tonic- clonic seizure. Vitals on admission temperature 96.1, pulse 120, respiratory 20, blood pressure 117/101 on room air Pertinent labs leukocytosis 16.9 without any bandemia H&H stable 13.5/39.8, elevated platelet count 472, normal sodium and potassium levels, elevated anion gap of 21, corrected calcium level:9.9, elevated prolactin levels 148 Urine toxicology positive for opioids(used heroin yesterday), methadone, but it has been sent cocaine. EKG showed normal sinus rhythm with QTC of 463, first set of troponin negative. Head CT scan :No evidence for acute intracranial injury. Chest x-ray:No evidence for acute disease X-ray of ankle :Distal left tibial and fibular fractures. patient is admitted to floor and treated for these medical conditions: 1. left Distal left tibial and fibular fractures status post mechanical fall Initially patient was supposed to have surgery today however anesthesiology was concerned about the recent cocaine abuse by the patient has subsequently The surgery was postponed to Thursday11/03/2017. Pain management with methadone and IV morphine when necessary. We will watch for symptoms of compartment syndrome. CPK was normal. BP and CBC was unremarkable 2. History of bipolar disease/History of polysubstance abuse/dependence on methadone. On methadone 90 mg daily. Psychology evaluation for management of bipolar is pending. 3.Tonic-clonic seizure(questionable lithium toxicity/polysubstance abuse) Seizure precautions. EEG showed dysrhythmic pattern. Neurology evaluation is pending Full code, DVT prophylaxis is subcutaneous heparin,methadone for pain Problem List: 1. Bipolar 1 disorder with moderate dot Pain Ratin Pain Location: left foot Pain Goal: Pain 4 or less Pain Plan: same Tomorrow's Labs & Rationales: cbc bep * Obtain EEG * Neurology consult has been obtained to Dr. Robbins, will follow the recommendations. * Maintain seizure and aspiration precautions 3.History of recent suicidal attempt on Tegretol overdose with history of bipolar disease. * Psych consult has been obtained for further recommendations. 4. History of opioid abuse/dependence on methadone. * [facility] * Continue methadone 90 mg daily DVT prophylaxis with Lovenox Moderate to severe pain controlled with Tylenol Patient is full code Problem List: 1. Bipolar 1 disorder with moderate dot Tomorrow's Labs & Rationales: cbc bep
[2017-10-30 07:28] VITALS: BP 128/69
[2017-10-30 08:07] LABS: ABSOLUTE BASOPHIL COUNT 0.1 /CUMM (0.0-0.2); ABSOLUTE EOSINOPHIL COUNT 0.4 /CUMM (0.0-0.7); ABSOLUTE LYMPH COUNT 2.6 /CUMM (1.2-3.4); ABSOLUTE MONOCYTE COUNT 1.2 /CUMM (0.10-0.60); BASOPHIL % 0.6 % (0.0-2.0); EOSINOPHIL % 3.7 % (0-5); GRANULOCYTE % 58.8 % (42.2-75.2); HEMATOCRIT 35.5 % (37-47); MEAN CORPUSCULAR HGB 28.1 PG (27.0-31.0); MEAN CORPUSCULAR HGB CONC 33.5 G/DL (33.0-37.0); MEAN CORPUSCULAR VOLUME 83.8 FL (81.0-99.0); MEAN PLATELET VOLUME 8.1 FL (7.4-10.4); PLATELET COUNT 391 /CUMM (130-400); RBC DISTRIBUTION WIDTH 14.8 % (11.5-14.5); RED BLOOD CELL CT 4.24 /CUMM (4.20-5.40); WHITE BLOOD CELL COUNT 10.2 /CUMM (4.8-10.8)
[2017-10-30 10:51] VITALS: BP 126/80
--- NOTE | 2017-10-30 11:58 | Patient Discharge Instructions ---
Discharge Instructions General Discharge Information You were seen/treated for: fall tibial fx drug abuse on methadone therapy Special Instructions: -please follow up with Surgery clinic on 11/17/2017 1:15 pm with for reevaluation, suture removal, and repeat xrays. Clinic phone number is [phone] -follow-up appointment with Dr. Cordova before returning to work -please follow up with [facility] for your meth[facility]one therapy and mental health medications. -Please follow-up with your primary care provider within 7 days after discharge. -Please follow-up with your orthopedic surgeon 2 weeks after discharge -We have made changes to your home medications, please read the instructions carefully. -Please come back to the hospital if your symptoms got worse. Diet Continue normal diet: Yes Activity Activity Self Limited: Yes Activity Limited to: No weight bearing (LLE) Acute Coronary Syndrome Inclusion Criteria At DC or during hospital stay patient has or had the following: ACS DIAGNOSIS No Discharge Core Measures Meds if any: Prescribed or Continued at Discharge Meds if any: NOT Prescribed or Continued at Discharge Congestive Heart Failure Inclusion Criteria At DC or during hospital stay patient has or had the following: CHF DIAGNOSIS No Discharge Core Measures Meds if any: Prescribed or Continued at Discharge Meds if any: NOT Prescribed or Continued at Discharge Cerebrovascular accident Inclusion Criteria At DC or during hospital stay patient has or had the following: CVA/TIA Diagnosis No Discharge Core Measures Meds if any: Prescribed or Continued at Discharge Meds if any: NOT Prescribed or Continued at Discharge Venous thromboembolism Inclusion Criteria VTE Diagnosis No VTE Type NONE VTE Confirmed by (Test) NONE Discharge Core Measures - Per Current guidelines, there needs to be overlap - treatment for the first 5 days of Warfarin therapy. - If discharged on Warfarin prior to 5 days of - overlap therapy, the patient will need to be - assessed for post discharge needs including - *Post discharge parental anticoagulation - *Warfarin and/or parental anticoagulation education - *Follow up date to check INR post discharge At least 5 days overlap therapy as Inpatient No Meds if any: Prescribed or Continued at Discharge Note: Overlap Therapy is Warfarin and Anticoagulant Meds if any: NOT Prescribed or Continued at Discharge
--- NOTE | 2017-10-30 13:15 | Cons- Psychiatry ---
Psychiatric Consult Date of Consult: 10/30/17 Reason for Consult: Bipolar, recent suicide attempt Dr. Poe attending History of Present Illness: Identifying Info: 32-year-old female JAMIE to [facility] emergency department 10/29/17 after a fall at mothers house, subsequently had a tonic clonic seizure in ambulance. Magdalene today on general medical floor CC: "I'm done with lithium." HPI: Patient with a known history of bipolar disorder and polysubstance abuse with multiple previous hospitalizations most recently discharged from [facility] 10/28/2017 after transfer from medical floor at [facility] where she was treated for carbamazepine overdose and cutting her wrists. She had been started on lithium by psychiatric consult service at [facility]. She had a 9 day inpatient psychiatric stay. On day of discharge patient was informed her lithium level was 1.6 and was instructed to not take her lithium for 2 days and then restart at a lower dose. She reports that she was experiencing ataxia to which she attributes the following which she fractured her leg but denied other signs of lithium toxicity. Patient reports after her discharge even though she didn't want to "a soon as I got home I got a bag (of heroin)." Utox is also positive for cocaine and benzodiazepines. Discussed treatment options for mood stabilization moving forward. Patient is adamant that she will not retrial lithium. Discussed restarting carbamazepine at length given recent overdose. She will not consider any alternative agents for mood stabilization at this time. She contracts for safety and verbalizes the significant risk of on overdose of this medication. Would like to take it once a day. Additionally she would not like to continue taking chlorpromazine. Per patient's discharge instructions from [facility] she has an intake with NORI Menendez on 11/03/2017 at 0900 as well as plan to follow-up at [facility]. PMH: Please see the H&P for a complete listing Migraines Past Psych History: Unspecified bipolar disorder -Outpatient Previously ?provider in [place] -Inpatient [facility] 10/2017 [place] 2004, 2005, 2015 [place] 2006, 2012 Substance History Opiate use disorder on MMT Cocaine use disorder -Treatment Currently [facility] 2016 [facility] 2016 IOP 2003, 2008, 1 visit 2014 ? [facility] Family Psych & Substance History: Not obtained Social: . Has 3 children, 11-year-old daughter and 13-year-old son in the care of her mother, [id number] daughter in the care of DCF foster care. Currently works in a [employer]. On probation. Abuse/Trauma: Not obtained Current Home Psychotropic Medications: [place] [facility] 600 mg twice a day Chlorpromazine 50 mg 3 times a day Hydroxyzine 50 mg every 6 hours when necessary anxiety Methadone 90 mg daily Current Hospital Psychotropic Medications: None Allergies: Coded Allergies: Penicillins (Severe, ANAPHYLAXIS 04/23/16) Current Medications: Current Medications Sig/Wanda Start time Last Medication Dose Route Stop Time Status Admin Acetaminophen 1,000 MG Q8 PRN 10/30 1551 AC IV Acetaminophen 1,000 MG Q6H 10/29 1530 DC 10/30 IV 1442 Carbamazepine 200 MG AT BEDTIME 10/30 2200 AC PO Dextrose/Sodium 1,000 ML Q13H 10/29 1000 AC 10/30 Chloride IV 1442 Enoxaparin Sodium 40 MG DAILY 10/30 1000 AC 10/30 SC 0901 Ibuprofen 200 MG Q8P PRN 10/30 1600 AC PO Ibuprofen 600 MG Q6P PRN 10/29 1015 DC 10/30 PO 0345 Methadone HCl 90 MG DAILY 10/29 1000 AC 10/30 PO 0902 Morphine Sulfate 1 MG Q4-PRN PRN 10/29 1700 AC 10/30 IV 1347 Past History Past Medical History Neurological: migraine, seizure EENT: NONE Cardiovascular: NONE Respiratory: NONE Gastrointestinal: NONE Hepatic: NONE Renal: NONE Musculoskeletal: NONE Psychiatric: anxiety, bipolar disease, depression, insomnia Endocrine: NONE Blood Disorders: NONE Cancer(s): NONE HUMANITIES INSTRUCTOR/Reproductive: NONE Past Surgical History Surgical History: none Psychosocial History Strengths/Capabilities: Supportive boyfriend Physical Limitations (Interventions): Chronic pattern of relapse Psychiatric Treatment History Psych Treatment Psychiatric Treatment Yes Diagnosis: BIPOLAR, Depression , Anxiety Risk Factors: high anxiety/distress, SA/MH hospitalized, substance abuse Substance Use/Abuse History Drug Use/Abuse Substances Used/Abused Yes Substance Abuse Treatment Substance Abuse Treatment Past Substance Abuse [place] Yes Assessment/Plan Mental Status Mental Status Exam: Presentation/Appearance: Cooperative with evaluation. Hospital garb. Orientation: x3 Sensorium: Awake and alert Eye contact: Appropriate Affect: Full range, congruent Mood: "Not bad" Depression: Denies Anxiety: Denies Thought Content: - Denies SI/HI, AH/VH, PI. States and also believes they will not kill themselves. - Denies Hopeless/Helpless Thoughts Thought Process: Linear and goal directed Associations: Appropriate Speech: Normal tone and rate Judgment: Poor Insight: Fair Cognition: Memory: Grossly intact Attention/Concentration: Grossly intact Fund of Knowledge: Adequate Abstractions: Not assessed MMSE: Not assessed Brief ROS Gait: Not observed Sleep: Adequate Appetite: Adequate Energy: Adequate IADLs/ADLs: With assist currently Lab Results: Laboratory Tests 10/30/17 0612: Anion Gap 8, Estimated GFR > 60, BUN/Creatinine Ratio 13.3, CBC w Diff NO MAN DIFF REQ, RBC 4.24, MCV 83.8, MCH 28.1, RDW 14.8 H, MPV 8.1, Gran % 58.8, Lymphocytes % 25.6, Monocytes % 11.3 H, Eosinophils % 3.7, Basophils % 0.6, Absolute Granulocytes 6.0, Absolute Lymphocytes 2.6, Absolute Monocytes 1.2 H, Absolute Eosinophils 0.4, Absolute Basophils 0.1, PUBS MCHC 33.5 10/29/17 0954: Creatine Kinase Cancelled, PT Cancelled, INR Cancelled, APTT Cancelled 10/29/17 0810: Creatine Kinase 104, Troponin I 0.02 10/29/17 0535: Urine Opiates Screen > 4000.00 H, Methadone Screen > 735 H, Barbiturate Screen < 60, Ur Phencyclidine Scrn 7.00, Amphetamines Screen < 100, U Benzodiazepines Scrn 273 H, Urine Cocaine Screen > 1000 H, Urine Cannabis Screen < 5.00 10/29/17 0455: Anion Gap 21 H, Estimated GFR > 60, BUN/Creatinine Ratio 31.7 H, Glucose 137 H, Calcium 10.5 H, Total Bilirubin 0.5, AST 36, ALT 20, Alkaline Phosphatase 61 , Total Protein 8.9 H, Albumin 4.8, Globulin 4.1, Albumin/Globulin Ratio 1.2, Prolactin 148.0 H, CBC w Diff MAN DIFF ORDERED, RBC 4.80, MCV 83.0, MCH 28.1, RDW 14.4, MPV 7.9, Gran % 74.5, Lymphocytes % 18.0 L, Monocytes % 6.4, Eosinophils % 0.7, Basophils % 0.4, Absolute Granulocytes 12.6 H, Segmented Neutrophils 78 H, Absolute Lymphocytes 3.0, Lymphocytes 17 L, Monocytes 5, Absolute Monocytes 1.1 H, Absolute Eosinophils 0.1, Absolute Basophils 0.1, Platelet Estimate INCREASED, Normocytic RBCs VERIFIED, Normochromic RBCs VERIFIED, PUBS MCHC 33.8, Fld Total RBCs Counted 100, [place] 1.0, Serum Alcohol < 10.0 10/29/17 0436: Urine Test NEGATIVE Diffential Diagnosis: Unspecified bipolar disorder, most recent episode depressed Cocaine use disorder Opiate use disorder Impression: 32-year-old female with known history of bipolar disorder and polysubstance abuse presents as psychiatrically asymptomatic 2 days status post discharge from inpatient psychiatric unit for a suicide attempt in late September. She immediately relapsed on cocaine and heroin on discharge which likely contributed to her fall and potentially contributed to her witnessed tonic-clonic seizure. The patient will not Provisional Treatment Plan: - No indication for inpatient psychiatry, follow up on outpatient basis at [facility] for dual diagnosis tx and [facility] for methadone maintenance. Patient to reschedule [facility] appointment currently planned for 11/03. - Please start carbamazepine immediate release 200 mg PO BID. Patient would likely benefit from XR formulation due to her desire to only take once daily. We'll plan to hold off on starting long acting agent pending neurology recommendations for anticonvulsant. - Please continue home hydroxyzine 50 mg every 6 hours when necessary anxiety. - If patient requires when necessary medication for severe anxiety or agitation on last admission Haldol 5 mg by mouth was tolerated well. Would avoid benzodiazepines given recent prolonged taper post overdose. Thank you for including psychiatry in this case we'll continue to follow. A total of 60 minutes was spent with the patient with more than 50% of the time spent in counseling and/or coordination of care.
--- NOTE | 2017-10-30 14:53 | PN- Orthopedic ---
Subjective Subjective: Patient seen and examined. She is resting comfortably, no complaints of pain at this time. States she has been hungry and is looking forward to dinner. Objective Vital Signs and I&Os Vital Signs Date Time Temp Pulse Resp B/P B/P Pulse O2 O2 Flow FiO2 Mean Ox Delivery Rate 10/30 1051 126/80 10/30 0728 98.3 72 18 128/69 97 Room Air 10/29 2314 98.1 71 20 132/78 98 Room Air 10/29 1634 98.4 77 18 154/92 99 Intake & Output 10/30 1600 10/30 0800 10/30 0000 10/29 1600 10/29 0800 10/29 0000 Intake Total 1000 565 725 Output Total 300 400 750 Balance 700 165 725 -750 Intake, IV 1000 565 725 Intake, Oral 0 0 0 Number 0 0 Bowel Movements Output, Urine 300 400 750 Patient 174 lb 200 lb Weight Weight Reported by Patient Measurement Method Physical Exam: Patient alert, oriented, and in no distress Resting in bed with LLE splinted and elevated. LLE: Knee immobilizer adjusted to support lower leg and knee No pain with movement of the leg in the splint SILT over left dorsal foot, including does and first webspace No pain with active movement of the great toe No pain with passive stretch of the great toe Foot warm, well-perfused. Assessment/Plan Assessment/Plan 32yo F with left tibial fracute with extension to left ankle. Plan for ORIF of tibia and fibula fractures. Per discussion with anesthesiologist Dr. Deshpande, plan to delay surgery given recent ingestion of cocaine and resulting hypertension; concern for hemodynamic instability with general anesthesia. Tentative plan for surgery on Nov 03. Will continue to monitor patient for compartment syndrome - if signs/symptoms, will expedite surgery despite risks. If patient remains stable, will plan for ORIF tibia and fibula in ~4 days. Recommend continued inpatient management of patient's pain and ongoing evaluation for compartment syndrome. She is not a good candidate for outpatient management given psychiatric issues, recent substance abuse, and risk of compartment syndrome. NWB LLE in splint and immobilizer Pain control DVT prophylaxis with lovenox and SCD to RLE Please call if any questions/concerns regarding patient's clinical exam or if concern for increased pain secondary to rising compartment pressures.
[2017-10-30 20:19] VITALS: BP 142/90
[2017-10-30 22:10] VITALS: BP 126/82
[2017-10-31 06:47] VITALS: BP 128/90
[2017-10-31 08:15] LABS: ABSOLUTE BASOPHIL COUNT 0.1 /CUMM (0.0-0.2); ABSOLUTE EOSINOPHIL COUNT 0.5 /CUMM (0.0-0.7); ABSOLUTE GRANULOCYTE CT 3.9 /CUMM (1.4-6.5); ABSOLUTE LYMPH COUNT 2.9 /CUMM (1.2-3.4); BASOPHIL % 0.7 % (0.0-2.0); EOSINOPHIL % 5.7 % (0-5); GRANULOCYTE % 47.3 % (42.2-75.2); HEMATOCRIT 34.1 % (37-47); MEAN CORPUSCULAR HGB CONC 33.7 G/DL (33.0-37.0); MEAN CORPUSCULAR VOLUME 83.2 FL (81.0-99.0); PLATELET COUNT 375 /CUMM (130-400); RBC DISTRIBUTION WIDTH 14.7 % (11.5-14.5); WHITE BLOOD CELL COUNT 8.3 /CUMM (4.8-10.8)
--- NOTE | 2017-10-31 09:05 | PN- Orthopedic ---
Subjective Subjective: Patient seen and examined this morning. Sleeping, says repeatedly that she wants to be left alone. Pain medication given earlier this morning with good relief. Per RN, no bowel movement in several days. Objective Vital Signs and I&Os Vital Signs Date Time Temp Pulse Resp B/P B/P Pulse O2 O2 Flow FiO2 Mean Ox Delivery Rate 10/31 0647 128/90 10/31 0637 99.1 70 20 98 10/30 2210 98.9 76 20 126/82 98 Room Air 10/30 2019 99.3 86 18 142/90 99 Room Air 10/30 1051 126/80 Intake & Output 10/31 1600 10/31 0800 10/31 0000 10/30 1600 10/30 0800 10/30 0000 Intake Total 122 590 0911 565 725 Output Total 300 400 300 400 Balance 300 140 700 165 725 Intake, IV 680 346 5220 565 725 Intake, Oral 240 0 0 0 Number 0 0 0 Bowel Movements Output, Urine 300 400 300 400 Patient 174 lb Weight Weight Reported by Patient Measurement Method Physical Exam: Patient resting in bed, slightly agitated LLE splinted and elevated on one pillow. LLE: Knee immobilizer and posterior/U splint to lower leg and knee SILT over left dorsal foot, including does and first webspace No pain with passive stretch of the great toe Foot warm, well-perfused; moderate swelling. Current Medications: Current Medications Sig/Wanda Start time Last Medication Dose Route Stop Time Status Admin Acetaminophen 1,000 MG Q8 PRN 10/30 1551 AC 10/31 IV 0555 Acetaminophen 1,000 MG Q6H 10/29 1530 DC 10/30 IV 1442 Carbamazepine 200 MG AT BEDTIME 10/30 2200 DC PO Carbamazepine 200 MG BID 10/30 220 AC 10/30 PO 2122 Dextrose/Sodium 1,000 ML Q13H 10/29 1000 AC 10/31 Chloride IV 0556 Enoxaparin Sodium 40 MG DAILY 10/30 1000 AC 10/30 SC 0901 Hydroxyzine HCl 50 MG Q6 PRN 10/30 2000 AC PO Ibuprofen 200 MG Q8P PRN 10/30 1600 AC 10/31 PO 0303 Ibuprofen 600 MG Q6P PRN 10/29 1015 DC 10/30 PO 0345 Methadone HCl 90 MG DAILY 10/29 1000 AC 10/30 PO 0902 Morphine Sulfate 1 MG Q4-PRN PRN 10/29 1700 AC 10/31 IV 0753 Results Last 48 Hours of Labs: Laboratory Tests 10/31 10/30 7073 2028 Chemistry Sodium (137 - 145 mmol/L) 140 Potassium (3.5 - 5.1 mmol/L) 4.1 Chloride (98 - 107 mmol/L) 106 Carbon Dioxide (22 - 30 mmol/L) 27 Anion Gap (5 - 16) 7 BUN (7 - 17 mg/dL) 7 Creatinine (0.5 - 1.0 mg/dL) 0.6 Estimated GFR (>60 ml/min) > 60 BUN/Creatinine Ratio (7 - 25 %) 11.7 Hematology CBC w Diff NO MAN DIFF REQ WBC (4.8 - 10.8 /CUMM) 8.3 RBC (4.20 - 5.40 /CUMM) 4.10 L Hgb (12.0 - 16.0 G/DL) 11.5 L Hct (37 - 47 %) 34.1 L MCV (81.0 - 99.0 FL) 83.2 MCH (27.0 - 31.0 PG) 28.0 RDW (11.5 - 14.5 %) 14.7 H Plt Count (130 - 400 /CUMM) 375 MPV (7.4 - 10.4 FL) 8.0 Gran % (42.2 - 75.2 %) 47.3 Lymphocytes % (20.5 - 51.1 %) 34.7 Monocytes % (1.7 - 9.3 %) 11.6 H Eosinophils % (0 - 5 %) 5.7 H Basophils % (0.0 - 2.0 %) 0.7 Absolute Granulocytes (1.4 - 6.5 /CUMM) 3.9 Absolute Lymphocytes (1.2 - 3.4 /CUMM) 2.9 Absolute Monocytes (0.10 - 0.60 /CUMM) 1.0 H Absolute Eosinophils (0.0 - 0.7 /CUMM) 0.5 Absolute Basophils (0.0 - 0.2 /CUMM) 0.1 PUBS MCHC (33.0 - 37.0 G/DL) 33.7 Toxicology Urine Opiates Screen (>2000 NG/ML) > 4000.00 H Methadone Screen (>300 NG/ML) > 735 H Barbiturate Screen (>200 NG/ML) < 60 Ur Phencyclidine Scrn (>25 NG/ML) 7.00 Amphetamines Screen (>1000 NG/ML) < 100 U Benzodiazepines Scrn (>200 NG/ML) 276 H Urine Cocaine Screen (>300 NG/ML) > 1000 H Urine Cannabis Screen (>50 NG/ML) < 5.00 10/30 10/29 0612 0954 Chemistry Sodium (137 - 145 mmol/L) 139 Potassium (3.5 - 5.1 mmol/L) 3.8 Chloride (98 - 107 mmol/L) 106 Carbon Dioxide (22 - 30 mmol/L) 25 Anion Gap (5 - 16) 8 BUN (7 - 17 mg/dL) 8 Creatinine (0.5 - 1.0 mg/dL) 0.6 Estimated GFR (>60 ml/min) > 60 BUN/Creatinine Ratio (7 - 25 %) 13.3 Creatine Kinase Cancelled Coagulation PT Cancelled INR Cancelled APTT Cancelled Hematology CBC w Diff NO MAN DIFF REQ WBC (4.8 - 10.8 /CUMM) 10.2 RBC (4.20 - 5.40 /CUMM) 4.24 Hgb (12.0 - 16.0 G/DL) 11.9 L Hct (37 - 47 %) 35.5 L MCV (81.0 - 99.0 FL) 83.8 MCH (27.0 - 31.0 PG) 28.1 RDW (11.5 - 14.5 %) 14.8 H Plt Count (130 - 400 /CUMM) 391 MPV (7.4 - 10.4 FL) 8.1 Gran % (42.2 - 75.2 %) 58.8 Lymphocytes % (20.5 - 51.1 %) 25.6 Monocytes % (1.7 - 9.3 %) 11.3 H Eosinophils % (0 - 5 %) 3.7 Basophils % (0.0 - 2.0 %) 0.6 Absolute Granulocytes (1.4 - 6.5 /CUMM) 6.0 Absolute Lymphocytes (1.2 - 3.4 /CUMM) 2.6 Absolute Monocytes (0.10 - 0.60 /CUMM) 1.2 H Absolute Eosinophils (0.0 - 0.7 /CUMM) 0.4 Absolute Basophils (0.0 - 0.2 /CUMM) 0.1 PUBS MCHC (33.0 - 37.0 G/DL) 33.5 Assessment/Plan Assessment/Plan 32yo F with left tibial shaft fracute with extension to left ankle. Plan for ORIF of tibia and fibula fractures. Per discussion with anesthesiologist Dr. Deshpande, plan to delay surgery given recent ingestion of cocaine; concern for hemodynamic instability with general anesthesia. Plan for surgery on Nov 03, however will take her to the OR urgently if concern for compartment syndrome. Recommend continued inpatient management of patient's pain and ongoing evaluation for compartment syndrome. She is not a good candidate for outpatient management given psychiatric issues, recent substance abuse, and risk of compartment syndrome. NWB LLE in splint and immobilizer Pain control DVT prophylaxis with lovenox and SCD to RLE Bowel regimen Please call if any questions/concerns regarding patient's clinical exam or if concern for increased pain secondary to rising compartment pressures. Attending MD Review Statement Attending Statement Attending MD Statement: examined this patient
--- NOTE | 2017-10-31 11:06 | PN- Housestaff ---
[place],[facility] 10/31/17 1106: Subjective Follow-up For: -Left tibial fracute with extension to left ankle. -Cocaine abuse -Plan for ORIF of tibia and fibula fractures. Complaints: no complaints Tele-Events Since Last Visit: - Subjective: Patient was seen and examined today, she is lying in the bed comfotable with no acute distress, she didn;t have bowel movement for about 2 days, but she didn't feel constipated. Vitals stable Review of Systems Constitutional: Reports: no symptoms. EENTM: Reports: no symptoms. Cardiovascular: Reports: no symptoms. Respiratory: Reports: no symptoms. Gastrointestinal: Reports: no symptoms. Genitourinary: Reports: no symptoms. Musculoskeletal: Reports: no symptoms. Objective Last 24 Hrs of Vital Signs/I&O Vital Signs Date Time Temp Pulse Resp B/P B/P Pulse O2 O2 Flow FiO2 Mean Ox Delivery Rate 11/01 0640 98.2 70 18 132/80 96 Room Air 10/31 2142 99.6 74 20 120/84 97 Room Air 10/31 1407 99.1 70 20 110/70 97 Room Air Intake & Output 11/01 1600 11/01 0800 11/01 0000 Intake Total 600 720 Output Total 1200 550 Balance -600 170 Intake, IV 600 Intake, Oral 720 Number 0 Bowel Movements Output, Urine 1200 550 Physical Exam General Appearance: Alert, Oriented X3, Cooperative, No Acute Distress Skin: No Rashes, No Breakdown, No Significant Lesion Skin Temp/Moisture Exam: Warm/Dry HEENT: Atraumatic, PERRLA, EOMI, Mucous Membr. moist/pink Neck: Supple, No JVD Cardiovascular: Regular Rate, Normal S1, Normal S2, No Murmurs Lungs: Clear to Auscultation, Normal Air Movement Abdomen: Normal Bowel Sounds, Soft, No Tenderness Extremities: No Edema, Normal Pulses Vascular: Normal Pulses, Pulses Symmetrical Current Medications: Current Medications Sig/Wanda Start time Last Medication Dose Route Stop Time Status Admin Acetaminophen 1,000 MG Q8 PRN 10/30 1551 AC 11/01 IV 0108 Carbamazepine 200 MG BID 10/300 AC 10/31 PO 205 Dextrose/Sodium 1,000 ML Q13H 10/29 1000 AC 10/31 Chloride IV 2232 Enoxaparin Sodium 40 MG DAILY 10/30 1000 AC 12/23 SC 1045 Hydroxyzine HCl 50 MG Q6 PRN 10/30 2000 AC 10/31 PO 1541 Ibuprofen 200 MG Q8P PRN 10/30 1600 AC 10/31 PO 0303 Methadone HCl 90 MG DAILY 10/29 1000 AC 10/31 PO 1045 Morphine Sulfate 1 MG Q4-PRN PRN 10/29 1700 AC 11/01 IV 0627 Assessment/Plan Assessment: Patient is a 32-year-old woman with past medical history significant for bipolar disease, recently hospitalized for suicidal attempt on Tegretol overdose, history of opioid abuse/dependence on methadone, history of benzos and cocaine abuse presented to the ER through an ambulance after a fall and tonic- clonic seizure. Vitals on admission temperature 96.1, pulse 120, respiratory 20, blood pressure 117/101 on room air Pertinent labs leukocytosis 16.9 without any bandemia H&H stable 13.5/39.8, elevated platelet count 472, normal sodium and potassium levels, elevated anion gap of 21, corrected calcium level:9.9, elevated prolactin levels 148 Urine toxicology positive for opioids(used heroin yesterday), methadone, but it has been sent cocaine. EKG showed normal sinus rhythm with QTC of 463, first set of troponin negative. Head CT scan :No evidence for acute intracranial injury. Chest x-ray:No evidence for acute disease X-ray of ankle :Distal left tibial and fibular fractures. patient is admitted to [facility] floor and treated for these medical conditions: 1. left Distal left tibial and fibular fractures status post mechanical fall -Due to a concern of recent cocaine abuse the surgery was postponed to Thursday11/03/2017. -Pain management with methadone and IV morphine when necessary. -We will watch for symptoms of compartment syndrome. -CPK was normal. -Will f/u BEP and CBC 2. History of bipolar disease/History of polysubstance abuse/dependence on methadone. On methadone 90 mg daily. Psychology evaluation for management of bipolar is pending. 3.Tonic-clonic seizure(questionable lithium toxicity/polysubstance abuse) Seizure precautions. EEG showed dysrhythmic pattern. Neurology evaluation is pending Full code, DVT prophylaxis is subcutaneous heparin,methadone for pain Problem List: 1. Methadone dependence 2. Tibia/fibula fracture, shaft Pain Ratin Pain Location: left lower extrimity Pain Goal: Remain pain free Pain Plan: - Tomorrow's Labs & Rationales: CBC, BEP DVT/Prophylaxis: pharmacological Gaston Poe MD 10/31/17 2342: Attending MD Review Statement Attending Statement Attending MD Statement: examined this patient, discuss w/resident/PA/SECTION PLOTTER OPERATOR, agreed w/resident/PA/SECTION PLOTTER OPERATOR, reviewed EMR data (avail), discussed with nursing, amended to note Attending Assessment/Plan: The patient appeared comfortable and case was discussed with house staff. No signs of compartment syndrome. Will continue current care with plans for OR .
[2017-10-31 14:07] VITALS: BP 110/70
[2017-10-31 21:42] VITALS: BP 120/84
[2017-11-01 06:40] VITALS: BP 132/80
--- NOTE | 2017-11-01 09:26 | PN- Housestaff ---
[facility] Subjective Follow-up For: -Left tibial fracute with extension to left ankle. -Cocaine abuse -Plan for ORIF of tibia and fibula fractures. Complaints: no complaints Subjective: Patient was seen and examined today, she is lying in the bed comfotable with no acute distress, she refused blood work earlier in the am, she denies any pressure pain on the left lower extrimity, no symptoms of compartment syndrome. Vitals stable Review of Systems Constitutional: Reports: no symptoms. EENTM: Reports: no symptoms. Cardiovascular: Reports: no symptoms. Respiratory: Reports: no symptoms. Gastrointestinal: Reports: no symptoms. Genitourinary: Reports: no symptoms. Musculoskeletal: Reports: no symptoms. Skin: Reports: no symptoms. Neurological/Psychological: Reports: no symptoms. Objective Last 24 Hrs of Vital Signs/I&O Vital Signs Date Time Temp Pulse Resp B/P B/P Pulse O2 O2 Flow FiO2 Mean Ox Delivery Rate 11/01 0640 98.2 70 18 132/80 96 Room Air 10/31 2142 99.6 74 20 120/84 97 Room Air 10/31 1407 99.1 70 20 110/70 97 Room Air Intake & Output 11/01 1600 11/01 0800 11/01 0000 Intake Total 600 720 Output Total 1200 550 Balance -600 170 Intake, IV 600 Intake, Oral 720 Number 0 Bowel Movements Output, Urine 1200 550 Physical Exam General Appearance: Alert, Oriented X3, Cooperative, No Acute Distress Skin: No Rashes, No Breakdown, No Significant Lesion Skin Temp/Moisture Exam: Warm/Dry HEENT: Atraumatic, PERRLA, EOMI, Mucous Membr. moist/pink Cardiovascular: Regular Rate, Normal S1, Normal S2, No Murmurs Lungs: Clear to Auscultation, Normal Air Movement Abdomen: Normal Bowel Sounds, Soft, No Tenderness Extremities: No Edema, Normal Pulses Vascular: Normal Pulses, Pulses Symmetrical Current Medications: Current Medications Sig/Wanda Start time Last Medication Dose Route Stop Time Status Admin Acetaminophen 1,000 MG Q8 PRN 10/30 1551 AC 11/01 IV 0108 Carbamazepine 200 MG BID 10/30 2200 AC 10/31 PO 2051 Dextrose/Sodium 1,000 ML Q13H 10/29 1000 AC 10/31 Chloride IV 223 Enoxaparin Sodium 40 MG DAILY 10/30 1000 AC 10/31 SC 1045 Hydroxyzine HCl 50 MG Q6 PRN 10/30 2000 AC 10/31 PO 1541 Ibuprofen 200 MG Q8P PRN 10/30 1600 AC 10/31 PO 0303 Methadone HCl 90 MG DAILY 10/29 1000 AC 10/31 PO 1045 Morphine Sulfate 1 MG Q4-PRN PRN 10/29 1700 AC 11/01 IV 0627 Assessment/Plan Assessment: Patient is a 32-year-old woman with past medical history significant for bipolar disease, recently hospitalized for suicidal attempt on Tegretol overdose, history of opioid abuse/dependence on methadone, history of benzos and cocaine abuse presented to the ER through an ambulance after a fall and tonic- clonic seizure. Vitals on admission temperature 96.1, pulse 120, respiratory 20, blood pressure 117/101 on room air Pertinent labs leukocytosis 16.9 without any bandemia H&H stable 13.5/39.8, elevated platelet count 472, normal sodium and potassium levels, elevated anion gap of 21, corrected calcium level:9.9, elevated prolactin levels 148 Urine toxicology positive for opioids(used heroin yesterday), methadone, but it has been sent cocaine. EKG showed normal sinus rhythm with QTC of 463, first set of troponin negative. Head CT scan :No evidence for acute intracranial injury. Chest x-ray:No evidence for acute disease X-ray of ankle :Distal left tibial and fibular fractures. patient is admitted to [facility] floor and treated for these medical conditions: 1. left Distal left tibial and fibular fractures status post mechanical fall -No signs or symptoms of compartment syndrome -Due to a concern of recent cocaine abuse the surgery was postponed to Thursday11/03/2017. -Pain management with methadone and IV morphine when necessary. -We will watch for symptoms of compartment syndrome. -CPK was normal. -Will f/u BEP and CBC 2. History of bipolar disease/History of polysubstance abuse/dependence on methadone. On methadone 90 mg daily. Psychology evaluation for management of bipolar is pending. 3.Tonic-clonic seizure(questionable lithium toxicity/polysubstance abuse) Seizure precautions. EEG showed dysrhythmic pattern. Neurology evaluation is pending Full code, DVT prophylaxis is subcutaneous heparin,methadone for pain Problem List: 1. Methadone dependence 2. Tibia/fibula fracture, shaft Pain Ratin Pain Location: - Pain Goal: Remain pain free Pain Plan: Methadone Tomorrow's Labs & Rationales: cbc, bep DVT/Prophylaxis: pharmacological Gaston Poe MD 11/01/17 2018: Attending MD Review Statement Attending Statement Attending MD Statement: examined this patient, discuss w/resident/PA/SHRINK PIT OPERATOR, agreed w/resident/PA/SHRINK PIT OPERATOR, reviewed EMR data (avail), discussed with nursing, amended to note Attending Assessment/Plan: The patient was seen and discussed with house staff. Appears comfortable with no evidence compartment syndrome. Plan is for ORIF of left ankle/LLE on 11/03 and will make NPO after midnight 11/02.
--- NOTE | 2017-11-01 10:04 | PN- Orthopedic ---
See Addendum Subjective Subjective: No complaints. No acute changes reported. Objective Vital Signs and I&Os Vital Signs Date Time Temp Pulse Resp B/P B/P Pulse O2 O2 Flow FiO2 Mean Ox Delivery Rate 11/01 0640 98.2 70 18 132/80 96 Room Air 10/31 2142 99.6 74 20 120/84 97 Room Air 10/31 1407 99.1 70 20 110/70 97 Room Air Intake & Output 11/01 1600 11/01 0800 11/01 0000 10/31 1600 10/31 0800 10/31 0000 Intake Total 490 445 8111 600 540 Output Total 1200 550 300 300 400 Balance -600 170 775 300 140 Intake, IV 600 575 600 300 Intake, Oral 720 500 240 Number 0 0 0 Bowel Movements Output, Urine 1200 550 300 300 400 Physical Exam: General - alert & oriented x 3. comfortable appearing. no acute distress. Extremities - LLE splinted and elevated on one pillow. immobilized and posterior /U splint to lower leg and knee. nvi. Current Medications: Current Medications Sig/Wanda Start time Last Medication Dose Route Stop Time Status Admin Acetaminophen 1,000 MG Q8 PRN 10/30 1551 AC 11/01 IV 0108 Carbamazepine 200 MG BID 10/30 2200 AC 10/31 PO 2052 Dextrose/Sodium 1,000 ML Q13H 10/29 1000 AC 10/31 Chloride IV 2232 Enoxaparin Sodium 40 MG DAILY 10/30 1000 AC 10/31 SC 1045 Hydroxyzine HCl 50 MG Q6 PRN 10/30 2000 AC 10/31 PO 1541 Ibuprofen 200 MG Q8P PRN 10/30 1600 AC 10/31 PO 0303 Methadone HCl 90 MG DAILY 10/29 1000 AC 10/31 PO 1045 Morphine Sulfate 1 MG Q4-PRN PRN 10/29 1700 AC 11/01 IV 0627 Results Last 48 Hours of Labs: Laboratory Tests 10/31 Chemistry Sodium (137 - 145 mmol/L) 140 Potassium (3.5 - 5.1 mmol/L) 4.1 Chloride (98 - 107 mmol/L) 106 Carbon Dioxide (22 - 30 mmol/L) 27 Anion Gap (5 - 16) 7 BUN (7 - 17 mg/dL) 7 Creatinine (0.5 - 1.0 mg/dL) 0.6 Estimated GFR (>60 ml/min) > 60 BUN/Creatinine Ratio (7 - 25 %) 11.7 Hematology CBC w Diff NO MAN DIFF REQ WBC (4.8 - 10.8 /CUMM) 8.3 RBC (4.20 - 5.40 /CUMM) 4.10 L Hgb (12.0 - 16.0 G/DL) 11.5 L Hct (37 - 47 %) 34.1 L MCV (81.0 - 99.0 FL) 83.2 MCH (27.0 - 31.0 PG) 28.0 RDW (11.5 - 14.5 %) 14.7 H Plt Count (130 - 400 /CUMM) 375 MPV (7.4 - 10.4 FL) 8.0 Gran % (42.2 - 75.2 %) 47.3 Lymphocytes % (20.5 - 51.1 %) 34.7 Monocytes % (1.7 - 9.3 %) 11.6 H Eosinophils % (0 - 5 %) 5.7 H Basophils % (0.0 - 2.0 %) 0.7 Absolute Granulocytes (1.4 - 6.5 /CUMM) 3.9 Absolute Lymphocytes (1.2 - 3.4 /CUMM) 2.9 Absolute Monocytes (0.10 - 0.60 /CUMM) 1.0 H Absolute Eosinophils (0.0 - 0.7 /CUMM) 0.5 Absolute Basophils (0.0 - 0.2 /CUMM) 0.1 PUBS MCHC (33.0 - 37.0 G/DL) 33.7 Toxicology Urine Opiates Screen (>2000 NG/ML) > 4000.00 H Methadone Screen (>300 NG/ML) > 735 H Barbiturate Screen (>200 NG/ML) < 60 Ur Phencyclidine Scrn (>25 NG/ML) 7.00 Amphetamines Screen (>1000 NG/ML) < 100 U Benzodiazepines Scrn (>200 NG/ML) 276 H Urine Cocaine Screen (>300 NG/ML) > 1000 H Urine Cannabis Screen (>50 NG/ML) < 5.00 Assessment/Plan Assessment/Plan 32yo F with L tibial shaft fx with extension to left ankle, no evidence of compartment syndrome Plan for ORIF of tibia and fibula fractures, surgery delayed given recent ingestion of cocaine plan for surgery on Nov 03, however would go OR urgently if concern for compartment syndrome arises continued inpatient management of patient's pain and ongoing evaluation for compartment syndrome. She is not a good candidate for outpatient management given psychiatric issues, recent substance abuse, and risk of compartment syndrome. NWB LLE in splint and immobilizer Pain control DVT prophylaxis with lovenox and SCD to RLE Bowel regimen Please call if any questions/concerns regarding patient's clinical exam or if concern for increased pain secondary to rising compartment pressures
[2017-11-01 13:19] LABS: ABSOLUTE BASOPHIL COUNT 0.1 /CUMM (0.0-0.2); ABSOLUTE EOSINOPHIL COUNT 0.4 /CUMM (0.0-0.7); ABSOLUTE GRANULOCYTE CT 3.9 /CUMM (1.4-6.5); ABSOLUTE LYMPH COUNT 3.3 /CUMM (1.2-3.4); ABSOLUTE MONOCYTE COUNT 0.7 /CUMM (0.10-0.60); BASOPHIL % 0.9 % (0.0-2.0); EOSINOPHIL % 4.8 % (0-5); GRANULOCYTE % 46.6 % (42.2-75.2); HEMATOCRIT 32.7 % (37-47); MEAN CORPUSCULAR HGB 28.5 PG (27.0-31.0); MEAN CORPUSCULAR HGB CONC 34.1 G/DL (33.0-37.0); MEAN CORPUSCULAR VOLUME 83.5 FL (81.0-99.0); MEAN PLATELET VOLUME 7.8 FL (7.4-10.4); PLATELET COUNT 414 /CUMM (130-400); RBC DISTRIBUTION WIDTH 14.3 % (11.5-14.5); RED BLOOD CELL CT 3.92 /CUMM (4.20-5.40); WHITE BLOOD CELL COUNT 8.3 /CUMM (4.8-10.8)
[2017-11-01 16:00] VITALS: BP 126/78
[2017-11-01 22:27] VITALS: BP 139/83
[2017-11-02 06:42] VITALS: BP 155/86
--- NOTE | 2017-11-02 08:27 | PN- Housestaff ---
See Addendum Subjective Follow-up For: left tibial fibular fracture Subjective: adequate analgesia no complaints of numbness no complaints at this time Review of Systems Constitutional: Reports: see HPI. Objective Last 24 Hrs of Vital Signs/I&O Vital Signs Date Time Temp Pulse Resp B/P B/P Pulse O2 O2 Flow FiO2 Mean Ox Delivery Rate 11/02 0642 97.9 72 18 155/86 98 Room Air 11/01 2227 99.2 74 18 139/83 98 Room Air 11/01 1600 97.6 74 18 126/78 97 Room Air Intake & Output 11/02 1600 11/02 0800 11/02 0000 Intake Total 1025 600 Output Total 800 Balance 225 600 Intake, IV 545 600 Intake, Oral 480 Number 0 Bowel Movements Output, Urine 800 Physical Exam General Appearance: Alert, Oriented X3, Cooperative, No Acute Distress Neck: Supple, No JVD Cardiovascular: Regular Rate, Normal S1, Normal S2, No Murmurs Lungs: Clear to Auscultation, Normal Air Movement Abdomen: Normal Bowel Sounds, Soft, No Tenderness, No Masses Extremities: No Clubbing, No Cyanosis, No Edema, Normal Pulses, LLE wrapped and in knee immobilizer Current Medications: Current Medications Sig/Wanda Start time Last Medication Dose Route Stop Time Status Admin Acetaminophen 1,000 MG Q8 PRN 10/30 1551 AC 11/01 IV 2210 Carbamazepine 200 MG BID 10/30 2200 AC 11/02 PO 0849 Dextrose/Sodium 1,000 ML Q13H 10/29 1000 DC 11/02 Chloride IV 0025 Enoxaparin Sodium 40 MG DAILY 10/30 1000 DC 11/02 SC 0849 Hydroxyzine HCl 50 MG Q6 PRN 10/30 2000 AC 10/31 PO 1541 Ibuprofen 200 MG Q8P PRN 10/30 1600 DC 10/31 PO 0303 Methadone HCl 90 MG DAILY 10/29 1000 AC 11/02 PO 0850 Morphine Sulfate 1 MG Q4-PRN PRN 10/29 1700 AC 11/02 IV 1204 Assessment/Plan Assessment: 32-year-old female with past medical history significant for bipolar disease, recently hospitalized for suicidal attempt (overdose Tegretol), history of polysubstance abuse currently on methadone maintenance, BIBA after a fall and tonic-clonic seizure with LLE tibia and fibula fractures with extension to the ankle. Mechanical fall: possibly related to substance abuse Complicated by Left Distal left tibial and fibular fractures Orthopedics consulted Currently in knee immobilizer Scheduled for ORIF Thursday11/03/2017, delayed because of cocaine ingestion Continue analgesia with methadone morphine prn No evidence of compartment syndrome. Creatine kinase normal No significant blood loss Mental illness/polysubstance abuse Psychology evaluation Urine toxicology positive for opioids, methadone, and cocaine. Opioid dependence: Continue methadone maintenance 90mg daily Seizures Seizure precautions. EEG showed dysrhythmic pattern. Neurology consulted NPO after midnight DVT ppx-heparin 5000 units subcutaneous Q8H Full code, D,methadone for pain Problem List: 1. Bipolar 1 disorder with moderate dot 2. Tibia/fibula fracture, shaft 3. Cocaine abuse 4. Heroin abuse 5. Seizure 6. Methadone dependence Pain Ratin Pain Location: LLE Pain Goal: Pain 4 or less Pain Plan: prn Tomorrow's Labs & Rationales: cbc, bep
--- NOTE | 2017-11-02 10:18 | PN- Orthopedic ---
See Addendum Subjective Subjective: Patient continues to complain of ankle pain,which is well-controlled. She denies any numbness or parathesias. She denies any further muscle spasms. Objective Vital Signs and I&Os Vital Signs Date Time Temp Pulse Resp B/P B/P Pulse O2 O2 Flow FiO2 Mean Ox Delivery Rate 11/02 0642 97.9 72 18 155/86 98 Room Air 11/01 2227 99.2 74 18 139/83 98 Room Air 11/01 1600 97.6 74 18 126/78 97 Room Air Intake & Output 11/02 1600 11/02 0800 11/02 0000 11/01 1600 11/01 0800 11/01 0000 Intake Total 4006 148 4075 600 720 Output Total 800 1100 1200 550 Balance 225 600 -25 -600 170 Intake, IV 545 600 575 600 Intake, Oral 480 500 720 Number 0 0 0 Bowel Movements Output, Urine 800 1100 1200 550 Physical Exam: General: Resting comfortably awake an alert in NAD Extremities: LLE splinted with sheree wrap and elevated on two pillow with knee immobilizer in place, moves toes, compartment soft, appropriately tender. Neurovascular intact. Current Medications: Current Medications Sig/Wanda Start time Last Medication Dose Route Stop Time Status Admin Acetaminophen 1,000 MG Q8 PRN 10/30 1551 AC 11/01 IV 2210 Carbamazepine 200 MG BID 10/30 220 AC 11/02 PO 0849 Dextrose/Sodium 1,000 ML Q13H 10/29 1000 AC 11/02 Chloride IV 0025 Enoxaparin Sodium 40 MG DAILY 10/30 1000 AC 11/02 SC 0849 Hydroxyzine HCl 50 MG Q6 PRN 10/30 2000 AC 10/31 PO 1541 Ibuprofen 200 MG Q8P PRN 10/30 1600 AC 10/31 PO 0303 Methadone HCl 90 MG DAILY 10/29 1000 AC 11/02 PO 0850 Morphine Sulfate 1 MG Q4-PRN PRN 10/29 1700 AC 11/02 IV 0650 Results Last 48 Hours of Labs: Laboratory Tests 11/01 1154 Hematology CBC w Diff NO MAN DIFF REQ WBC (4.8 - 10.8 /CUMM) 8.3 RBC (4.20 - 5.40 /CUMM) 3.92 L Hgb (12.0 - 16.0 G/DL) 11.2 L Hct (37 - 47 %) 32.7 L MCV (81.0 - 99.0 FL) 83.5 MCH (27.0 - 31.0 PG) 28.5 RDW (11.5 - 14.5 %) 14.3 Plt Count (130 - 400 /CUMM) 414 H MPV (7.4 - 10.4 FL) 7.8 Gran % (42.2 - 75.2 %) 46.6 Lymphocytes % (20.5 - 51.1 %) 39.1 Monocytes % (1.7 - 9.3 %) 8.6 Eosinophils % (0 - 5 %) 4.8 Basophils % (0.0 - 2.0 %) 0.9 Absolute Granulocytes (1.4 - 6.5 /CUMM) 3.9 Absolute Lymphocytes (1.2 - 3.4 /CUMM) 3.3 Absolute Monocytes (0.10 - 0.60 /CUMM) 0.7 H Absolute Eosinophils (0.0 - 0.7 /CUMM) 0.4 Absolute Basophils (0.0 - 0.2 /CUMM) 0.1 PUBS MCHC (33.0 - 37.0 G/DL) 34.1 Assessment/Plan Assessment/Plan This is a 32 year-old female who sustained a left tibial shaft fracture with extension to left ankle with no evidence of compartment syndrome at this time. Surgery delayed to to ingestion of cocaine on admission. Proceed to OR tomorrow for ORIF of tibia and fibula fractures with Dr. Art Owens current pain regimen Cont to evaluate for compartment syndrome Cont NWB of LLE in splint and immobilizer DVT ppx - lovenox and SCD to RLE Cont reg diet, NPO after midnight Will d/w Dr. Cordova
[2017-11-02 14:05] VITALS: BP 138/84
[2017-11-02 21:19] VITALS: BP 120/80
[2017-11-03 06:48] VITALS: BP 148/87
--- NOTE | 2017-11-03 07:32 | PN- Housestaff ---
Christa Joel 11/03/17 0731: Subjective Follow-up For: drug abuse tibia fx on methadone Subjective: I have seen and examined the patient. awaiting surgery today NPO. pain is controlled. Review of Systems Constitutional: Reports: see HPI. Objective Last 24 Hrs of Vital Signs/I&O Vital Signs Date Time Temp Pulse Resp B/P B/P Pulse O2 O2 Flow FiO2 Mean Ox Delivery Rate 11/03 0648 97.9 79 20 148/87 99 11/02 2119 98.0 80 18 120/80 98 Room Air 11/02 1405 98.2 79 16 138/84 96 Room Air Intake & Output 11/03 1600 11/03 0800 11/03 0000 Intake Total 30 Output Total 300 400 Balance -270 -400 Intake, IV 30 Output, Urine 300 400 Physical Exam General Appearance: Alert, Oriented X3, Cooperative, No Acute Distress Other Physical Findings: Neck: Supple, No JVD Cardiovascular: Regular Rate, Normal S1, Normal S2, No Murmurs Lungs: Clear to Auscultation, Normal Air Movement Abdomen: Normal Bowel Sounds, Soft, No Tenderness, No Masses Extremities: No Clubbing, No Cyanosis, No Edema, Normal Pulses, LLE wrapped and in knee immobilizer Current Medications: Current Medications Sig/Wanda Start time Last Medication Dose Route Stop Time Status Admin Acetaminophen 1,000 MG Q8 PRN 10/30 1551 AC 11/01 IV 2210 Carbamazepine 200 MG BID 10/30 2200 AC 11/03 PO 0803 Dextrose/Sodium 1,000 ML Q13H 11/03 0815 AC Chloride IV Dextrose/Sodium 1,000 ML Q13H 10/29 1000 DC 11/02 Chloride IV 0025 Enoxaparin Sodium 40 MG DAILY 10/30 1000 DC 11/02 SC 0849 Hydroxyzine HCl 50 MG Q6 PRN 10/30 2000 AC 10/31 PO 1541 Ibuprofen 200 MG Q8P PRN 10/30 1600 DC 10/31 PO 0303 Methadone HCl 90 MG DAILY 10/29 1000 AC 11/03 PO 0803 Morphine Sulfate 1 MG Q4-PRN PRN 10/29 1700 AC 11/03 IV 0852 Polyethylene Glycol 17 GM DAILY 11/03 1000 AC PO Senna/Docusate Sodium 1 TAB BID PRN 11/03 0815 AC PO Assessment/Plan Assessment: 32-year-old female with past medical history significant for bipolar disease, recently hospitalized for suicidal attempt (overdose Tegretol), history of polysubstance abuse currently on methadone maintenance, BIBA after a fall and tonic-clonic seizure with LLE tibia and fibula fractures with extension to the ankle. Mechanical fall: possibly related to substance abuse Complicated by Left Distal left tibial and fibular fractures Orthopedics consulted Currently in knee immobilizer Scheduled for ORIF Thursday11/03/2017, delayed because of cocaine ingestion Continue analgesia with methadone morphine prn No evidence of compartment syndrome. Creatine kinase normal No significant blood loss Mental illness/polysubstance abuse Psychology evaluation: rec start with tegretol BID Urine toxicology positive for opioids, methadone, and cocaine. Opioid dependence: Continue methadone maintenance 90mg daily Seizures Seizure precautions. EEG showed dysrhythmic pattern. Neurology consulted/ pending NPO after midnight DVT ppx-heparin 5000 units subcutaneous Q8H Full code, D,methadone for pain Problem List: 1. Tibia/fibula fracture, shaft Pain Ratin Pain Location: left leg Pain Goal: Pain 4 or less Pain Plan: same Tomorrow's Labs & Rationales: cbc Boby BAUTISTA,Malinda 11/03/17 1203: Attending MD Review Statement Attending Statement Attending MD Statement: examined this patient, discuss w/resident/PA/ORAL THERAPIST, agreed w/resident/PA/ORAL THERAPIST, reviewed EMR data (avail), discussed with nursing, reviewed images Attending Assessment/Plan: 32-year-old female past medical history of chronic opiate dependence, polysubstance abuse and bipolar disorder. She was recently here and discharged to inpatient psychiatry. She made at home for a day and came back with a fall, seizure and a urine toxicology that was positive for cocaine. She is nothing by mouth today pending surgery for her tibial shaft fracture that is extended into her ankle. Her pain is fairly well controlled and her psych medications are as per the psych DECISION ANALYST. Will follow closely.
[2017-11-03 08:12] LABS: ABSOLUTE BASOPHIL COUNT 0 /CUMM (0.0-0.2); ABSOLUTE EOSINOPHIL COUNT 0.5 /CUMM (0.0-0.7); ABSOLUTE GRANULOCYTE CT 6.9 /CUMM (1.4-6.5); ABSOLUTE LYMPH COUNT 2.4 /CUMM (1.2-3.4); ABSOLUTE MONOCYTE COUNT 0.6 /CUMM (0.10-0.60); BASOPHIL % 0.5 % (0.0-2.0); GRANULOCYTE % 66.3 % (42.2-75.2); HEMATOCRIT 36.7 % (37-47); MEAN CORPUSCULAR HGB CONC 33.2 G/DL (33.0-37.0); MEAN CORPUSCULAR VOLUME 84.4 FL (81.0-99.0); MEAN PLATELET VOLUME 7.8 FL (7.4-10.4); PLATELET COUNT 477 /CUMM (130-400); RBC DISTRIBUTION WIDTH 14.7 % (11.5-14.5); RED BLOOD CELL CT 4.34 /CUMM (4.20-5.40); WHITE BLOOD CELL COUNT 10.4 /CUMM (4.8-10.8)
[2017-11-03 08:16] LABS: PT 12.1 SEC (9.4-12.5); PTT 29 SEC (25-37)
--- NOTE | 2017-11-03 08:28 | Discharge Summary ---
Visit Information Visit Dates Admission Date: 10/29/17 Discharge Date: 11/07/2017 Hospital Course Course Attending Physician: Gaston Poe MD Primary Care Physician: Stewart Grant MD Hospital Course: Patient is a 32-year-old woman with past medical history significant for bipolar disease, recently hospitalized for suicidal attempt on Tegretol overdose, history of opioid abuse/dependence on methadone, history of benzos and cocaine abuse presented to the ER through an ambulance after a fall and tonic- clonic seizure. Vitals on admission temperature 96.1, pulse 120, respiratory 20, blood pressure 117/101 on room air Pertinent labs leukocytosis 16.9 without any bandemia H&H stable 13.5/39.8, elevated platelet count 472, normal sodium and potassium levels, elevated anion gap of 21, corrected calcium level:9.9, elevated prolactin levels 148 Urine toxicology positive for opioids(used heroin yesterday), methadone, but it has been sent cocaine. EKG showed normal sinus rhythm with QTC of 463, first set of troponin negative. Head CT scan :No evidence for acute intracranial injury. Chest x-ray:No evidence for acute disease X-ray of ankle :Distal left tibial and fibular fractures. patient was admitted to [facility] floor and treated for these medical conditions: #Mechanical fall possibly related to substance abuse with Complicated by Left Distal left tibial and fibular fractures patient underwent ankle/tibia ORIF, CPK normal. Pain was controlled with combination of methadone, IV morphine and oral morphine.upon discharge we put the patient on MS Contin and Vicodin. [facility] [place] was updated that patient has been prescribed narcotics for pain upon discharge. Patient should follow-up with Dr. Cordova on November 17. Full details in the follow-up instructions. #Mental illness/polysubstance abuse/ Opioid dependence:on methadone we c/w methadone 90 mg daily. per psych note we started the patient on tegretol 200m BID. tegretol level were therapuetic. patient should follow up with outpatient [facility] in [place] #Seizure like activity most likely due to drug abuse. EEG showed dysrhythmic pattern, no seizure activity. No seizure activity were observed during the hospitalization. patient should f/w with Neurology in outpatient setting. Allergies: Coded Allergies: Penicillins (Severe, ANAPHYLAXIS 04/23/16) Significant Procedures: [place] [address] MEDICAL RECORDS DEPARTMENT OPERATIVE REPORT PATIENT: MICHELET TANG PRESENT AGE: 32 PATIENT ACCOUNT NO: [id number] DATE OF : [birth year] ADMIT/SERVICE DATE: 10/29/17 ATTENDING PHYSICIAN: Gaston Poe MD PATIENT CARE UNIT CONFIDENTIAL COPY Operative/Inv Procedure Report Surgery Date: 11/03/17 Name of Procedure: Intramedullary nail stabilization right tibia ORIF right distal fibula and posterior malleolus Pre-Operative Diagnosis: Right diaphyseal tibia fracture Right distal fibula and posterior malleolus fractures Post-Operative Diagnosis: Right diaphyseal tibia fracture Right distal fibula and posterior malleolus fractures Estimated Blood Loss: 150mL Surgeon/Machine Designer: Art BAUTISTA, Nicole Rudd MD, Lise Devine Anesthesia: general endotracheal tube Implants: Tibia: Styker T2 Tibial Nail [id number] Proximal screws: 5x50mm, 5x60mm Distal locking screw: 5x35mm Fibula: [place] Distal Lateral Fibular Plate 4 hole (89mm) 3.5mm locking and cortical screws 3.5mm lag screw Posterior Malleolus: 4.0mm fully threaded cannulated screws - 40mm, 42mm Drains: None Specimens: None Tourniquet: 50min (distal fibular and posterior malleolus only) Complications: None Condition: Stable Operative/Procedure Note Note: INDICATION FOR PROCEDURE: OPERATIVE REPORT: DICTATED BY: Nicole Cordova MD DATE/TIME DICTATED:11/03/172136 SKID MACHINE OPERATOR:GRISELDA DATE/TIME TRANSCRIBED:11/03/172136 REPORT NUMBER:[id number] CONFIDENTIAL, DO NOT COPY WITHOUT APPROPRIATE AUTHORIZATION. CC: Report Status: Draft Report #: [id number] Page[p pg] Pertinent Lab Results: PATIENT: MICHELET TANG PRESENT AGE: 32 PATIENT ACCOUNT NO: [id number] : 84 LOCATION: 2NB ORDERING PHYSICIAN: Nicole Cordova MD SERVICE DATE: 11/03/17 EXAM TYPE: RAD - [id number], LEFT EXAMINATION: XR TIBIA AND FIBULA, LEFT CLINICAL INFORMATION: Fracture fixation. COMPARISON: Radiographs from 10/29/2017 TECHNIQUE: Intraoperative fluoroscopic imaging of the left leg and ankle was performed. Number of saved images: 75 Fluoroscopy time: 3 minutes, 31 seconds Dose: 1.49 rad FINDINGS: Fluoroscopic imaging of the left lower extremity ankle was utilized at time of open reduction and internal fixation of spiral fracture of distal tibia with placement of a tibial loly stabilized by proximal and distal interlocking screws. Also, fibular fracture was reduced with lateral plate-screw fixation and interfragmentary screw. Two horizontally oriented fixation screws were placed just above the level of the tibial plafond. The final images show satisfactory position and alignment of fragments. The talar dome is well-positioned in the mortise. IMPRESSION: Fluoroscopic imaging support provided to the operating room at time of open reduction internal fixation of tibia and fibular fractures. DICTATED BY: Maverick Richardson MD DATE/TIME DICTATED:11/04/17804 SKID MACHINE OPERATOR:CONOR DATE/TIME TRANSCRIBED:11/04/17804 CONFIDENTIAL, DO NOT COPY WITHOUT APPROPRIATE AUTHORIZATION. <Electronically signed in Other Vendor System> SIGNED BY: Maverick Richardson MD 11/04/17 0813 ========= PATIENT: MICHELET TANG PRESENT AGE: 32 PATIENT ACCOUNT NO: [id number] : 84 LOCATION: 2NB ORDERING PHYSICIAN: Torrey MITCHELL SERVICE DATE: 10/29/17 EXAM TYPE: RAD - XRY-ANKLE 3 OR MORE VIEWS L; [id number], LEFT EXAMINATION: XR TIBIA AND FIBULA, LEFT XR ANKLE, LEFT CLINICAL INFORMATION: Status post splinting of left tibial and fibular fractures. COMPARISON: X-rays from earlier in the same day on 10/29/2017. TECHNIQUE: 2 views of the left tibia and fibula were obtained. 3 views of the left ankle. FINDINGS: A splint is in place. Alignment of the oblique distal diaphyseal fracture through the tibia is slightly improved. Fracture fragments are now offset by approximately 6 mm, compared to 16 mm previously. There is very mild varus angulation and ventral apex angulation across the fracture site. A nondisplaced spiral oblique fracture extends inferiorly into the lower tibia involving the posterior malleolus. A comminuted fracture involving the distal fibula is fairly similar in appearance with complete displacement of fracture fragments which are also somewhat overriding. Diffuse soft tissue swelling is again noted. The distal fibular fracture fragment is posterior and medial relative to the occipital fragment proximal fracture fragment. On the lateral projection, the posterior portion of the ankle mortise is abnormally widened. Evaluation for a joint effusion is limited due to overlying splint cast material. There is a questionable chronic fracture deformity involving the medial malleolus as well. The knee joint appears normal. The proximal tibia and fibula are unremarkable. No visible knee joint effusion is seen. IMPRESSION: Status post splinting for fractures as described. Improved alignment of fracture fragments with some angulation in the distal tibia. Abnormal widening of the ankle mortise posteriorly with a fracture through the posterior malleolus. Comminuted fracture with displacement of fracture fragments involving the distal fibula as described. Diffuse soft tissue swelling. DICTATED BY: Kalpesh Childs MD DATE/TIME DICTATED:10/29/171855 SKID MACHINE OPERATOR:CONOR DATE/TIME TRANSCRIBED:10/29/171855 CONFIDENTIAL, DO NOT COPY WITHOUT APPROPRIATE AUTHORIZATION. <Electronically signed in Other Vendor System> SIGNED BY: Kalpesh Childs MD 1908 ======== PATIENT: MICHELET TANG PRESENT AGE: 32 PATIENT ACCOUNT NO: [id number] : 84 LOCATION: 2NB ORDERING PHYSICIAN: Torrey MITCHELL SERVICE DATE: 10/29/17 EXAM TYPE: RAD - XRY-ANKLE 3 OR MORE VIEWS L; [id number], LEFT EXAMINATION: XR TIBIA AND FIBULA, LEFT XR ANKLE, LEFT CLINICAL INFORMATION: Status post splinting of left tibial and fibular fractures. COMPARISON: X-rays from earlier in the same day on 10/29/2017. TECHNIQUE: 2 views of the left tibia and fibula were obtained. 3 views of the left ankle. FINDINGS: A splint is in place. Alignment of the oblique distal diaphyseal fracture through the tibia is slightly improved. Fracture fragments are now offset by approximately 6 mm, compared to 16 mm previously. There is very mild varus angulation and ventral apex angulation across the fracture site. A nondisplaced spiral oblique fracture extends inferiorly into the lower tibia involving the posterior malleolus. A comminuted fracture involving the distal fibula is fairly similar in appearance with complete displacement of fracture fragments which are also somewhat overriding. Diffuse soft tissue swelling is again noted. The distal fibular fracture fragment is posterior and medial relative to the occipital fragment proximal fracture fragment. On the lateral projection, the posterior portion of the ankle mortise is abnormally widened. Evaluation for a joint effusion is limited due to overlying splint cast material. There is a questionable chronic fracture deformity involving the medial malleolus as well. The knee joint appears normal. The proximal tibia and fibula are unremarkable. No visible knee joint effusion is seen. IMPRESSION: Status post splinting for fractures as described. Improved alignment of fracture fragments with some angulation in the distal tibia. Abnormal widening of the ankle mortise posteriorly with a fracture through the posterior malleolus. Comminuted fracture with displacement of fracture fragments involving the distal fibula as described. Diffuse soft tissue swelling. DICTATED BY: Kalpesh Childs MD DATE/TIME DICTATED:10/29/171855 SKID MACHINE OPERATOR:CONOR DATE/TIME TRANSCRIBED:10/29/171855 CONFIDENTIAL, DO NOT COPY WITHOUT APPROPRIATE AUTHORIZATION. <Electronically signed in Other Vendor System> SIGNED BY: Kalpesh Childs MD 1908 ======= PATIENT: MICHELET TANG PRESENT AGE: 32 PATIENT ACCOUNT NO: [id number] : 84 LOCATION: [facility] ORDERING PHYSICIAN: Concha Tolentino MD SERVICE DATE: 10/29/17 EXAM TYPE: CAT - CT HEAD WO IV CONTRAST EXAMINATION: CT HEAD WITHOUT CONTRAST CLINICAL INFORMATION: Pain following trauma. COMPARISON: October 08, 2017. TECHNIQUE: Contiguous axial images of the brain were obtained without IV contrast. DLP: 724 mGy-cm. FINDINGS: There are no pathologic extra-axial fluid collections. The lateral, third, fourth ventricles are nondilated and concordant with the appearance of the sulci. There is no evidence for acute intraparenchymal hemorrhage or infarct. There is neither mass nor mass effect. There is no shift of midline structures. There is mild mucosal thickening to the left maxillary sinus. There is patchy ethmoid sinus opacification. The paranasal sinuses and mastoid air cells are otherwise clear. There are no osseous lesions. IMPRESSION: No evidence for acute intracranial injury. DICTATED BY: Gaston Yarbrough MD DATE/TIME DICTATED:10/29/17623 SKID MACHINE OPERATOR:RAD.BATES DATE/TIME TRANSCRIBED:10/29/17623 CONFIDENTIAL, DO NOT COPY WITHOUT APPROPRIATE AUTHORIZATION. <Electronically signed in Other Vendor System> SIGNED BY: Gaston Yarbrough MD 10/29/17629 ========= PATIENT: MICHELET TANG PRESENT AGE: 32 PATIENT ACCOUNT NO: [id number] : 84 LOCATION: [facility] ORDERING PHYSICIAN: Concha Tolentino MD SERVICE DATE: 10/29/17 EXAM TYPE: RAD - [id number], LEFT EXAMINATION: XR TIBIA AND FIBULA, LEFT CLINICAL INFORMATION: Pain after fall. COMPARISON: Same day left ankle radiographs. TECHNIQUE: AP and lateral views of the left tibia and fibula were obtained. FINDINGS: Partially visualized is the known distal left tibial fracture. The fibular fracture is not included on this view. An overlying cast is in place. IMPRESSION: Adequate alignment of distal left tibial fracture with overlying cast in place. DICTATED BY: Gaston Yarbrough MD DATE/TIME DICTATED:10/29/17622 SKID MACHINE OPERATOR:BATES DATE/TIME TRANSCRIBED:10/29/17622 CONFIDENTIAL, DO NOT COPY WITHOUT APPROPRIATE AUTHORIZATION. <Electronically signed in Other Vendor System> SIGNED BY: Gaston Yarbrough MD 10/29/17626 ========= PATIENT: MICHELET TANG PRESENT AGE: 32 PATIENT ACCOUNT NO: [id number] : 84 LOCATION: [facility] ORDERING PHYSICIAN: Cnocha Tolentino MD SERVICE DATE: 10/29/17 EXAM TYPE: RAD - XRY-PORTABLE CHEST XRAY EXAMINATION: CHEST 1 VIEW CLINICAL INFORMATION: Trauma. Fracture. COMPARISON: October 07, 2017. TECHNIQUE: An AP view of the chest is provided. FINDINGS: The cardiac silhouette is not enlarged. The mediastinal and hilar contours are unremarkable. There are neither pleural effusions nor pneumothoraces. There are no consolidations. The osseous structures are unremarkable. IMPRESSION: No evidence for acute disease. DICTATED BY: Gaston Yarbrough MD DATE/TIME DICTATED:10/29/17529 SKID MACHINE OPERATOR:BATES DATE/TIME TRANSCRIBED:10/29/17529 CONFIDENTIAL, DO NOT COPY WITHOUT APPROPRIATE AUTHORIZATION. <Electronically signed in Other Vendor System> SIGNED BY: Gaston Yarbrough MD 10/29/17 0533 PATIENT: MICHELET TANG PRESENT AGE: 32 PATIENT ACCOUNT NO: [id number] : 84 LOCATION: [facility] ORDERING PHYSICIAN: Concha Tolenitno MD SERVICE DATE: 10/29/17 EXAM TYPE: RAD - XRY-ANKLE 3 OR MORE VIEWS L EXAMINATION: LEFT ANKLE 3 VIEWS CLINICAL INFORMATION: Left ankle pain. COMPARISON: None. TECHNIQUE: AP, lateral, oblique views of the left ankle were obtained. FINDINGS: There are oblique distal left tibial and fibular fractures. Alignment is adequate. There is soft tissue swelling about the ankle. There is no ankle joint effusion. IMPRESSION: Distal left tibial and fibular fractures. DICTATED BY: Gaston Yarbrough MD DATE/TIME DICTATED:10/29/17528 SKID MACHINE OPERATOR:CONOR DATE/TIME TRANSCRIBED:10/29/17528 CONFIDENTIAL, DO NOT COPY WITHOUT APPROPRIATE AUTHORIZATION. <Electronically signed in Other Vendor System> SIGNED BY: Gaston Yarbrough MD 10/29/17532 Disposition Summary Disposition Principal Diagnosis: tibix fx status pot orif Seizure like activity due to drug abuse Additional Diagnosis: on methadone therapy hx of bipolar Discharge Disposition: home health services Discharge Instructions General Discharge Information Code Status: Full Code Patient's Diet: regular Patient's Activity: as tolerated Follow-Up Instructions/Appts: -please follow up with Surgery clinic on 11/17/2017 1:15 pm with for reevaluation, suture removal, and repeat xrays. Clinic phone number is [phone] -follow-up appointment with Dr. Cordova before returning to work -please follow up with [facility] for your methadone therapy and mental health medications. -Please follow-up with your primary care provider within 7 days after discharge. -Please follow-up with your orthopedic surgeon 2 weeks after discharge -We have made changes to your home medications, please read the instructions carefully. -Please come back to the hospital if your symptoms got worse. Medications at Discharge Discharge Medications: Stop taking the following medications: Ziprasidone Hydrochloride (Geodon 40MG Cap) 40 MG CAP ORAL Every night Qty = 60 Tramadol HCl (Tramadol HCl) 50 MG TABLET ORAL EVERY SIX HOURS NEEDED as needed for LEG PAIN Qty = 12 Chlordiazepoxide HCl (Chlordiazepoxide HCl) 25 MG CAPSULE ORAL EVERY SIX HOURS Qty = 10 Canadian Carbonate (Canadian Carbonate) 300 MG TABLET ORAL THREE TIMES DAILY Qty = 30 Ziprasidone Hydrochloride (Geodon) 20 MG CAPSULE ORAL TWICE DAILY as needed for AGITAT/HALLUCINATION/IRRITABIL Qty = 30 Continue taking these medications: Nicotine (Nicotine Patch) 21 MG/24 HOUR PATCH.TD24 21 Milligram On the skin DAILY Qty = 10 Comments: Last Taken: 10/19/17 Time: 1130AM Nicotine (Nicorelief) 2 MG GUM 2 Milligram ORAL EVERY 2 HOURS NEEDED as needed for tobacco craving Qty = 10 Comments: Last Taken: 10/19/17 Time: 1540 Methadone Hydrochloride (Methadone HCl) 10 MG TABLET 90 Milligram ORAL DAILY Qty = 30 Comments: LAST GIVEN 11/07/17 @ 1115 Start taking the following new medications: Carbamazepine (Carbamazepine) 200 MG TABLET 200 Milligram ORAL TWICE DAILY Qty = 60 No Refills Comments: LAST GIVEN 11/07/17 @ 1115 Polyethylene Glycol 3350 (Miralax) 17 GRAM/DOSE POWDER 17 Gram ORAL DAILY Qty = 120 No Refills Apixaban (Eliquis) 2.5 MG TABLET 2.5 Milligram ORAL TWICE DAILY Qty = 90 No Refills Instructions: stop on 12/15/2017 (6 weeks) Comments: LAST GIVEN 11/07/17 @ 1115 Hydrocodone/Acetaminophen (Vicodin Es 7.5-300 MG Tablet) 7.5 MG-300 MG TABLET 1 Tablet ORAL EVERY SIX HOURS as needed for PAIN MANAGEMENT-BREAKTHROUGH Qty = 28 No Refills Morphine Sulfate (Ms Contin) 30 MG TABLET.ER 1 Tablet ORAL 2 x Daily as needed Qty = 14 No Refills Comments: LAST GIVEN 11/07/17 @ 1330 Copies To: Nicole Cordova MD; Rudy BAUTISTA,Stewart Castillo; Jenna BAUTISTA,Shankar Delacruz; Willie Zee APRN
[2017-11-03] MEDS ORDERED: MIRALAX119 GM PO (10:07)
[2017-11-03] MEDS ORDERED: CARBAMAZEPINE200 M3 PO (10:07)
[2017-11-03 13:26] VITALS: BP 124/70
--- NOTE | 2017-11-03 16:48 | PN- Orthopedic ---
Surgical Brief Attending Note Brief Attending Note: Patient seen and examined today. Doing well, does not complain of pain. Plan for surgery today for ORIF of left ankle fracture and IMN left tibial shaft fracture. Exam: Alert, awake, resting comfortably. Splint/knee immobilizer to LLE. Moving toes of left foot. SILT toes/dorsal foot. Toes warm, well-perfused. Urine tox screen: cocaine 83 (down from >1000 on prior testing earlier this admission). A/P: 32yo F with left distal fibula and posterior malleolus ankle fracture and left diaphyseal tibial shaft fracture. Plan for OR today for stabilization of fractures; patient has been NPO. Surgery delayed due to ingestion of cocaine prior to fall resulting in fractures; per anesthesia, safe to proceed at this time. Plan to close monitoring after surgery for compartment syndrome and pain control. To OR for stabilization today.
--- NOTE | 2017-11-03 21:43 | Operative Report ---
Operative/Inv Procedure Report Surgery Date: 11/03/17 Name of Procedure: Intramedullary nail stabilization right tibia ORIF right distal fibula and posterior malleolus Pre-Operative Diagnosis: Right diaphyseal tibia fracture Right distal fibula and posterior malleolus fractures Post-Operative Diagnosis: Right diaphyseal tibia fracture Right distal fibula and posterior malleolus fractures Estimated Blood Loss: 150mL Surgeon/Auto Body Mechanic Apprentice: Art BAUTISTA, Nicole Rudd MD, Lise Devine Anesthesia: general endotracheal tube Implants: Tibia: Styker T2 Tibial Nail [id number] Proximal screws: 5x50mm, 5x60mm Distal locking screw: 5x35mm Fibula: Goodrich Distal Lateral Fibular Plate 4 hole (89mm) 3.5mm locking and cortical screws 3.5mm lag screw Posterior Malleolus: 4.0mm fully threaded cannulated screws - 40mm, 42mm Drains: None Specimens: None Tourniquet: 50min (distal fibular and posterior malleolus only) Complications: None Condition: Stable Operative/Procedure Note Note: INDICATION FOR PROCEDURE: Sade Granados is a 32 year-old female who sustained a left tibia shaft fracture and left distal fibula fracture after a fall on 10/28/2017. At the time of her injury, she was under the influence of heroin and cocaine, and was outside smoking a cigarette when she fell backward. She was unable to catch herself and twisted on her left leg with immediate pain and inability to ambulate. She was taken to [facility] by baker bread, who noted seizure-like activity en route. She was admitted to [place] for further evaluation and monitoring. She was provisionally splinted in the Emergency Dept and closely monitored for compartment syndrome. Given her recent use of cocaine, surgical stabilization of the left leg was delayed 6 days. She did not show signs of compartment syndrome in the intervening days and her pain was controlled. On she was taken to the OR for stabilization of her fractures. OPERATIVE REPORT: Sade Granados was taken to the OR on 11/03/17 at [facility]. We discussed the risks and benefits of surgery, as well as the expected post-op course. The patient opted to proceed and written consent was obtained. She was taken into the OR and placed supine on the table. A time-out procedure was performed in which the patient, the operative extremity, and the planned procedures were verified. She was induced under general anesthesia. IV clindamycin was administered for antibiotic prophylaxis (penicillin allergy). A nonsterile tourniquet was applied to the left upper thigh, and the splint was removed from the lower leg. The leg, ankle, and foot were cleaned with chlorahexidine scrub, following by formal prepping and draping. The left leg was exsanguinated with an esmarch bandage and the tourniquet raised to 300mmHg. Bony landmarks about the ankle were verified with fluoroscopy. An incision was made over the posterolateral fibula and taken through the skin and subcutaneous tissues. The fascia overlying the fibula was incised and the fracture identified. It was an oblique, shorted fracture; the frature ends were debrided and the joint irrigated. Clamps were then used to reduce the fracture. This was verified with fluoroscopy. The patient's bone was soft in this region and deformed with clamping. A 3.5mm lag screw was placed across the fracture side, however did not provided solid stablization. The clamp was therefore left in place and a distal fibula plate was selected with a distal locking cluster and 4 holes proximal to the fracture line. The plate was contoured to the fibula and positioned appropriately; this was verified with fluoro. The plate was then fixed with distal unicortical locking screws and proximal shaft cortical screws. This was again verfied with fluoro. Once the fibula fixation was complete, attention was turned to the posterior malleolus fracture. The frature appeared to spiral from the diaphyseal tibia to the posterior malleolus; to avoid further displacement of the posterior fracture, two cannulated 4.0mm fully-threaded screws were placed. These were placed anterior to posterior in the distal tibia, just proximal to the physeal scar, on the medial and lateral aspects of the tibia. The tourniquet was then released after 50min. Attention was then turned to the tibia fracture. An incision was made over the patellar tendon, from the inferior pole of the patella to the tibial tubercle. The was taken through the skin and subcutaneous tissue down to the paratenon. The paratenon was sharply excised and raised medial and lateral. The patellar tendon was then sharply splint and a self-retaining retractor was placed. The tibial guide pin was placed just off the plateau, centered just medial to the lateral tibial spine. The pin location was verified using fluoro in the AP and lateral planes. The opening reamer (12mm) was then used. A ball tipped guide wire was passed through the proximal tibia, across the fracture site, and into the distal segment. The fracture was held reduced and sequential reamers were used to open the tibial canal for improved fit and fill. We reamed up to a size 11mm with good fit and chatter; a size 10 nail was selected. The nail lengthe measured 340mm, therefore a 330mm nail was selected to allow it to be countersunk proximally. The nail was assembled on the back table, then placed over the guide wire and gently taped into place. The fracture reduced nicely with good alignment. The guide wire was removed. A proximal screw guide was placed and two oblique 5mm screws were placed, one medial to lateral and the other lateral to medial. The lateral to medial screw appeared long on fluoro imaging, and was removed and a shorted screw placed. Attention was then turned to the ankle. A medial to lateral 5mm locking screw was placed through the nail for rotational control using the perfect emmonak technique. The screw was again verified using fluoro. The proximal guide was remove and final xrays were obtained. The wounds were copiously irrigated with normal saline. The patellar tendon was closed with interrupted 0 vicryl, following by 0 vicryl for the paratenon and bursa, 2-0 vicryl for the subQ layer, and interrupted nylon for skin. The fascia overlying the ankle incsion was closed with 0 vicryl, followed by 2-0 vicryl and 3-0 interrupted nylon for skin. The small stab incisions for the screws were closed with 2-0 vicryl for the subcutaneous layer and 3-0 nylon for skin. 0.5% marcaine was infiltrated around the incisions for local analgesia. The incisions were dressed with xeroform, gauze, and ABD pads, and secured with webril. A well-padded short leg posterior-U fiberglass splint was applied and secured with elastic bandage. The patient was extubated and taken from the OR to the recovery room in stable condition.
[2017-11-03 22:54] VITALS: BP 130/86
--- NOTE | 2017-11-03 23:03 | PN- Orthopedic ---
Subjective Subjective: Seen postoperatively, no complaints, no numbness, pain is under control Objective Vital Signs and I&Os Vital Signs Date Time Temp Pulse Resp B/P B/P Pulse O2 O2 Flow FiO2 Mean Ox Delivery Rate 11/03 2254 98.2 76 18 130/86 100 Room Air 11/03 1326 98.0 79 18 124/70 96 11/03 0648 97.9 79 20 148/87 99 Intake & Output 11/03 1600 11/03 0800 11/03 0000 11/02 1600 11/02 0800 11/02 0000 Intake Total 50 30 1000 1025 600 Output Total 550 300 400 600 800 Balance -500 -270 -400 400 225 600 Intake, IV 50 30 300 545 600 Intake, Oral 0 700 480 Number 0 0 0 Bowel Movements Output, Urine 550 300 400 600 800 Patient 174 lb Weight Physical Exam: Well-developed well-nourished no apparent distress. HEENT: Atraumatic, extraocular motion intact Neck: Supple, no lymphadenopathy Respiratory: No respiratory distress Extremities: No edema LEFT lower extremity dressing in place, clean dry and intact Left lower extremity splint in place Compression wrap in place. Neurovascularly intact distally, no numbness of the first webspace, no pain with passive motion of the EHL Neuro: Alert and oriented x3 Psych: Mood affect normal, normal memory normal judgment. Skin: Warm and dry, no rash on exposed skin Assessment/Plan Assessment/Plan Postop day 0 status post left tibia IM rodding and distal fibula ORIF Splint on at all times Nonweightbearing left lower extremity Elevate left lower extremity Ice when necessary Surgery to change dressings Check CBC in the morning Lovenox in a.m., 40 mg daily for DVT prophylaxis Perioperative antibiotics with clindamycin Advance diet as tolerated IV fluids still tolerating adequate by mouth Pain medication as needed Physical therapy in the morning, out of bed, nonweightbearing May use knee immobilizer for comfort but it is not necessary
[2017-11-04 05:46] VITALS: BP 184/91
--- NOTE | 2017-11-04 07:24 | PN- Housestaff ---
Christa Joel 11/04/17 0723: Subjective Follow-up For: tibia fx on methadone Subjective: I have seen and examined the patient.has pain after the surgery. we will increase the dose of morphine. Review of Systems Constitutional: Reports: see HPI. Objective Last 24 Hrs of Vital Signs/I&O Vital Signs Date Time Temp Pulse Resp B/P B/P Pulse O2 O2 Flow FiO2 Mean Ox Delivery Rate 11/03 2254 98.2 76 18 130/86 100 Room Air 11/03 1326 98.0 79 18 124/70 96 Intake & Output 11/04 1600 11/04 0800 11/04 0000 Intake Total 600 Output Total 850 350 Balance -250 -350 Intake, IV 600 Output, Urine 850 350 Physical Exam General Appearance: Alert, Oriented X3, Cooperative Other Physical Findings: Neck: Supple, No JVD Cardiovascular: Regular Rate, Normal S1, Normal S2, No Murmurs Lungs: Clear to Auscultation, Normal Air Movement Abdomen: Normal Bowel Sounds, Soft, No Tenderness, No Masses Extremities: No Clubbing, No Cyanosis, No Edema, Normal Pulses, LLE wrapped and in knee immobilizer Current Medications: Current Medications Sig/Wanda Start time Last Medication Dose Route Stop Time Status Admin Acetaminophen 1,000 MG .STK-MED ONE 11/04 0046 DC IV 11/04 0047 Acetaminophen 1,000 MG Q8 PRN 10/30 1551 AC 11/04 IV 0049 Bisacodyl 10 MG ONCE PRN 11/04 0900 AC MI 11/04 1800 Carbamazepine 200 MG BID 10/30 2200 AC 11/04 PO 0813 Clindamycin 600 MG IQ8 11/04 0000 DC 11/04 Dextrose/Water 50 ML IV 11/04 0829 0813 Clindamycin 600 MG ONCE ONE 11/03 1815 DC Dextrose/Water 50 ML IV 11/03 1844 Dexamethasone 4 MG .STK-MED ONE 11/03 1641 DC IM 11/03 1642 Dextrose/Sodium 1,000 ML Q13H 11/03 0815 DC 11/04 Chloride IV 0153 Enoxaparin Sodium 40 MG DAILY 11/04 1000 AC 11/04 SC 0814 Fentanyl Citrate 250 MCG .STK-MED ONE 11/03 1639 DC IM 11/03 1640 Haloperidol 5 MG .STK-MED ONE 11/03 2146 DC IM 12/26 2147 Hydromorphone HCl 2 MG .STK-MED ONE 11/03 2135 DC IM 11/03 2136 Hydromorphone HCl 2 MG .STK-MED ONE 11/03 1639 DC IM 11/03 1640 Hydroxyzine HCl 50 MG Q6 PRN 10/30 2000 AC 10/31 PO 1541 Ketamine HCl 50 MG .STK-MED ONE 11/03 1640 DC IM 11/03 1641 Ketorolac 15 MG ONCE ONE 11/04 0845 DC 11/04 Tromethamine IV 11/04 0846 0927 Lactated Ringer's 1,000 ML Q13H 11/03 2045 DC IV Methadone HCl 90 MG DAILY 10/29 1000 AC 11/04 PO 0813 Midazolam HCl 2 MG .STK-MED ONE 11/03 1640 DC IM 11/03 1641 Morphine Sulfate 2 MG Q4-PRN PRN 11/04 1045 AC IV Morphine Sulfate 1 MG ONCE ONE 11/04 0700 DC 11/04 IV 11/04 0701 0655 Morphine Sulfate 1 MG Q4-PRN PRN 10/29 1700 DC 11/04 IV 0814 Ondansetron HCl 8 MG .STK-MED ONE 11/03 1640 DC IM 11/03 1641 Polyethylene Glycol 17 GM DAILY 11/03 1000 AC 11/04 PO 0813 Senna/Docusate Sodium 1 TAB BID PRN 11/03 0815 AC PO Assessment/Plan Assessment: 32-year-old female with past medical history significant for bipolar disease, recently hospitalized for suicidal attempt (overdose Tegretol), history of polysubstance abuse currently on methadone maintenance, BIBA after a fall and tonic-clonic seizure with LLE tibia and fibula fractures with extension to the ankle. Mechanical fall: possibly related to substance abuse Complicated by Left Distal left tibial and fibular fractures Orthopedics consulted post ORIF Thursday11/03/2017, delayed because of cocaine ingestion Continue analgesia with methadone morphine(increased dose) [facility] in [place] was updated regarding possible dc with rapid release morphine No evidence of compartment syndrome. Creatine kinase normal Mental illness/polysubstance abuse Psychology evaluation: rec start with tegretol BID Urine toxicology positive for opioids, methadone, and cocaine. Opioid dependence: Continue methadone maintenance 90mg daily Seizures Seizure precautions. EEG showed dysrhythmic pattern. Neurology consult pending regular diet DVT ppx-levonox Full code, D,methadone for pain Problem List: 1. Tibia/fibula fracture, shaft Pain Ratin Pain Location: left foot Pain Goal: Pain 4 or less Pain Plan: increased morphine Tomorrow's Labs & Rationales: cbc bep Boby BAUTISTA,Malinda 11/04/17 1120: Attending MD Review Statement Attending Statement Attending MD Statement: examined this patient, discuss w/resident/PA/DIRECTOR OF COUNSELING, agreed w/resident/PA/DIRECTOR OF COUNSELING, reviewed EMR data (avail), discussed with nursing, discussed with case mgmt, reviewed images Attending Assessment/Plan: Patient says that her pain is not controlled. I think that's because of the methadone and chronic opiate use. Will need to increase her dose of morphine. Will also need to call the methadone clinic on discharge to let them know that we giving her some outpatient oral morphine to go home with. She is nonweightbearing per Ortho and will need to see what PT says. Anticipate probable discharge in a.m. if she stays stable.
--- NOTE | 2017-11-04 08:02 | PN- Orthopedic ---
Subjective Subjective: Patient complaining of pain that did not respond to last dose of iv morphine. Denies chest pain, shortness of breath and difficulty breathing. Denies nausea and vomitting. Has been voiding. Objective Vital Signs and I&Os Vital Signs Date Time Temp Pulse Resp B/P B/P Pulse O2 O2 Flow FiO2 Mean Ox Delivery Rate 11/034 98.2 76 18 130/86 100 Room Air 11/03 1326 98.0 79 18 124/70 96 Intake & Output 11/04 1600 11/04 0800 11/04 0000 11/03 1600 11/03 0800 11/03 0000 Intake Total 50 30 Output Total 650 350 550 300 400 Balance -650 -350 -500 -270 -400 Intake, IV 50 30 Intake, Oral 0 Number 0 Bowel Movements Output, Urine 650 350 550 300 400 Patient 174 lb Weight Physical Exam: General: Alert and oriented x3, no acute distress Cardiac: RRR, s1s2 Pulm: CTA bilaterally ABD: Non-tender, non-distended Extremiteis: Bilateral lower extremties, distal sensation intact. Able to move all toes, palpable dp pulse present on surgical site and right foot. Capillary refill brisk bilaterally. Upper calf soft, foot soft on surgical site. Dressing dry and intact. RLE calf soft, non-tender. Assessment/Plan Assessment/Plan OOD 1, s/p ORIF left tibia fx with im loly Splint on at all times Nonweightbearing left lower extremity Elevate left lower extremity Ice when necessary Surgery to change dressings Follow up CBC this am Lovenox in a.m., 40 mg daily for DVT prophylaxis Perioperative antibiotics with clindamycin x24 hours Advance diet as tolerated DC iv fluids Pain medication as needed Physical therapy in the morning, out of bed, nonweightbearing May use knee immobilizer for comfort but it is not necessary Will flower Cordova
--- NOTE | 2017-11-04 08:13 | RADIOLOGY REPORT ---
EXAMINATION: XR TIBIA AND FIBULA, LEFT CLINICAL INFORMATION: Fracture fixation. COMPARISON: Radiographs from 10/29/2017 TECHNIQUE: Intraoperative fluoroscopic imaging of the left leg and ankle was performed. Number of saved images: 75 Fluoroscopy time: 3 minutes, 31 seconds Dose: 1.49 rad FINDINGS: Fluoroscopic imaging of the left lower extremity ankle was utilized at time of open reduction and internal fixation of spiral fracture of distal tibia with placement of a tibial loly stabilized by proximal and distal interlocking screws. Also, fibular fracture was reduced with lateral plate-screw fixation and interfragmentary screw. Two horizontally oriented fixation screws were placed just above the level of the tibial plafond. The final images show satisfactory position and alignment of fragments. The talar dome is well-positioned in the mortise. IMPRESSION: Fluoroscopic imaging support provided to the operating room at time of open reduction internal fixation of tibia and fibular fractures.
[2017-11-04 08:44] LABS: ABSOLUTE BASOPHIL COUNT 0 /CUMM (0.0-0.2); BASOPHIL % 0.2 % (0.0-2.0); EOSINOPHIL % 0.3 % (0-5); HEMATOCRIT 33.5 % (37-47); MEAN PLATELET VOLUME 8.1 FL (7.4-10.4)
[2017-11-04 09:01] LABS: ABSOLUTE EOSINOPHIL COUNT 0.1 /CUMM (0.0-0.7); ABSOLUTE GRANULOCYTE CT 11.7 /CUMM (1.4-6.5); ABSOLUTE LYMPH COUNT 2.2 /CUMM (1.2-3.4); ABSOLUTE MONOCYTE COUNT 1.9 /CUMM (0.10-0.60); GRANULOCYTE % 73.9 % (42.2-75.2); MEAN CORPUSCULAR HGB 27.9 PG (27.0-31.0); MEAN CORPUSCULAR HGB CONC 33.3 G/DL (33.0-37.0); MEAN CORPUSCULAR VOLUME 83.7 FL (81.0-99.0); PLATELET COUNT 483 /CUMM (130-400); RBC DISTRIBUTION WIDTH 14.5 % (11.5-14.5)
[2017-11-04 09:11] LABS: WHITE BLOOD CELL COUNT 15.8 /CUMM (4.8-10.8)
[2017-11-04 14:14] VITALS: BP 148/90
--- NOTE | 2017-11-05 07:19 | PN- Housestaff ---
Christa Joel 11/05/17 0719: Subjective Follow-up For: Drug overdose Seizure-like activity Tibia fracture Subjective: I Have seen and examined the patient. Patient complains of pain. Increase of morphine IV frequency and added morphine immediate release. Most likely patient would benefit go to a STR. Review of Systems Constitutional: Reports: see HPI. Objective Last 24 Hrs of Vital Signs/I&O Vital Signs Date Time Temp Pulse Resp B/P B/P Pulse O2 O2 Flow FiO2 Mean Ox Delivery Rate 11/05 0731 98.4 92 18 167/114 100 Room Air 11/04 2211 99.1 98 20 99 Room Air 11/04 1414 98.1 86 18 148/90 97 Room Air Intake & Output 11/05 1600 11/05 0800 11/05 0000 Intake Total Output Total 550 800 Balance -550 -800 Output, Urine 550 800 Physical Exam General Appearance: Alert, Oriented X3, Cooperative Other Physical Findings: Neck: Supple, No JVD Cardiovascular: Regular Rate, Normal S1, Normal S2, No Murmurs Lungs: Clear to Auscultation, Normal Air Movement Abdomen: Normal Bowel Sounds, Soft, No Tenderness, No Masses Extremities: No Clubbing, No Cyanosis, No Edema, Normal Pulses, LLE wrapped and in knee immobilizer Current Medications: Current Medications Sig/Wanda Start time Last Medication Dose Route Stop Time Status Admin Acetaminophen 1,000 MG .STK-MED ONE 11/05 0052 DC IV 11/05 0053 Acetaminophen 1,000 MG Q8 PRN 10/30 1551 AC 11/05 IV 0052 Bisacodyl 10 MG ONCE PRN 11/04 0900 DC [place] 11/04 1800 Carbamazepine 200 MG BID 10/30 2200 AC 11/04 PO 2245 Enoxaparin Sodium 40 MG DAILY 11/04 1000 AC 11/05 SC 0857 Hydroxyzine HCl 50 MG Q6 PRN 10/30 2000 AC 10/31 PO 1541 Ketorolac 30 MG .STK-MED ONE 11/04 2242 DC Tromethamine IM 11/04 224 Ketorolac 15 MG ONCE ONE 11/04 2230 DC 11/04 Tromethamine IV 11/04 2231 2245 Ketorolac 15 MG ONCE ONE 11/04 1830 DC 11/04 Tromethamine IV 11/04 1831 1822 Methadone HCl 90 MG DAILY 12/21 1000 AC 11/05 PO 0857 Morphine Sulfate 2 MG ONCE ONE 11/05 0815 DC 11/05 IV 11/05 0816 0816 Morphine Sulfate 2 MG Q3P PRN 11/05 0802 AC IV Morphine Sulfate 15 MG Q4P PRN 11/05 0800 AC 11/05 PO 0857 Morphine Sulfate 2 MG Q4-PRN PRN 11/04 1045 DC 11/05 IV 0738 Polyethylene Glycol 17 GM DAILY 11/03 1000 AC 11/05 PO 0858 Senna/Docusate Sodium 1 TAB BID PRN 11/03 0815 AC 11/05 PO 0905 Assessment/Plan Assessment: 32-year-old female with past medical history significant for bipolar disease, recently hospitalized for suicidal attempt (overdose Tegretol), history of polysubstance abuse currently on methadone maintenance, BIBA after a fall and tonic-clonic seizure with LLE tibia and fibula fractures with extension to the ankle. Mechanical fall: possibly related to substance abuse Complicated by Left Distal left tibial and fibular fractures Orthopedics consulted post ORIF Thursday11/03/2017, delayed because of cocaine ingestion Continue analgesia with methadone morphine(increased dose) [facility] meth[facility] program in [place] was updated regarding possible dc with rapid release morphine No evidence of compartment syndrome. Creatine kinase normal we have increased pain med frequncy to 2 mg IV morphine Q3 and added oral IR morphine S PRN Q 4 Mental illness/polysubstance abuse Psychology evaluation: rec start with tegretol BID, therapetic level Urine toxicology positive for opioids, methadone, and cocaine. given the hx of drug abuse patient most likely benefits from going to rehab Opioid dependence: Continue methadone maintenance 90mg daily Seizures Seizure precautions. EEG showed dysrhythmic pattern. Neurology consult pending regular diet DVT ppx-levonox Full code, Problem List: 1. Bipolar 1 disorder with moderate dot Pain Ratin Pain Location: LEFT FOOT Pain Goal: Pain 4 or less Pain Plan: ADD PO MORPHINE Tomorrow's Labs & Rationales: CBC BRP Maru Salas 11/05/17 1417: Attending MD Review Statement Attending Statement Attending MD Statement: examined this patient, discuss w/resident/PA/HIGH SCHOOL PHYSICAL EDUCATION TEACHER, agreed w/resident/PA/HIGH SCHOOL PHYSICAL EDUCATION TEACHER, reviewed EMR data (avail), discussed with nursing, discussed with case mgmt Attending Assessment/Plan: agree with the above assessment and plan. PT is going to walk the pt with walker today. will see how she does. d/w pt the care plan.
[2017-11-05 07:31] VITALS: BP 167/114
[2017-11-05 09:39] LABS: ABSOLUTE BASOPHIL COUNT 0.1 /CUMM (0.0-0.2); ABSOLUTE EOSINOPHIL COUNT 0.2 /CUMM (0.0-0.7); ABSOLUTE GRANULOCYTE CT 6.4 /CUMM (1.4-6.5); ABSOLUTE LYMPH COUNT 2.5 /CUMM (1.2-3.4); ABSOLUTE MONOCYTE COUNT 1.4 /CUMM (0.10-0.60); BASOPHIL % 0.5 % (0.0-2.0); EOSINOPHIL % 1.7 % (0-5); GRANULOCYTE % 61.2 % (42.2-75.2); HEMATOCRIT 32.7 % (37-47); MEAN CORPUSCULAR HGB 28.1 PG (27.0-31.0); MEAN CORPUSCULAR HGB CONC 33.6 G/DL (33.0-37.0); MEAN CORPUSCULAR VOLUME 83.7 FL (81.0-99.0); PLATELET COUNT 440 /CUMM (130-400); RBC DISTRIBUTION WIDTH 14.7 % (11.5-14.5); RED BLOOD CELL CT 3.91 /CUMM (4.20-5.40); WHITE BLOOD CELL COUNT 10.5 /CUMM (4.8-10.8)
--- NOTE | 2017-11-05 09:59 | PN- Orthopedic ---
See Addendum Subjective Subjective: Pt in bed, complaining of 6/10 pain. pt refused PT yesterday due to pain. Denies numbness. Tolerating diet, passing flatus. No CP/SOB. Denies N/V. Denies fevers. Objective Vital Signs and I&Os Vital Signs Date Time Temp Pulse Resp B/P B/P Pulse O2 O2 Flow FiO2 Mean Ox Delivery Rate 11/05 0731 98.4 92 18 167/114 100 Room Air 11/04 2211 99.1 98 20 99 Room Air 11/04 1414 98.1 86 18 148/90 97 Room Air Intake & Output 11/05 1600 11/05 0800 11/05 0000 11/04 1600 11/04 0800 11/04 0000 Intake Total 850 600 Output Total 550 800 300 850 350 Balance -550 -800 550 -250 -350 Intake, IV 350 600 Intake, Oral 500 Output, Urine 550 800 300 850 350 Physical Exam: general; AAx3, no acute distress resp: CTAB Cardio: RRR ABD: ND, +BS, soft, NT Ext: moving all extremities. LLE, toes mobile, distal sensation intact with + capillary refill. Immobilizer was put back on LLE. Pillow placed under left foot for elevation of extramity Assessment/Plan Assessment/Plan 32yo F SP L tibial rodding and ORIF distal fib POD2 Encourage ambulation with PT, Non-weight bearing on LLE. Elevate LLE Pt instructed to keep Immobilizer in place and to not remove acebandage continue current pain management Pt wanting to return to work next week, instructed pt that she should have her follow-up appointment with Dr. Cordova before returning to work DVT prophylaxis: Lovenox 40mg QD Medical management of elevated blood pressure
[2017-11-05 13:39] VITALS: BP 134/70
[2017-11-05 21:59] VITALS: BP 138/70
[2017-11-06 07:03] VITALS: BP 132/86
--- NOTE | 2017-11-06 07:28 | PN- Housestaff ---
Christa Joel 11/06/17 0728: Subjective Follow-up For: real domínguez travon abuse bipolar Subjective: I have seen and examined the patient. She still complains of pain during the night. we will most likely change IV to PO medication today. per surgery, she need 6 weeks dvt ppx. we will put her or elliquis 2.5 BID. Review of Systems Constitutional: Reports: see HPI. Objective Last 24 Hrs of Vital Signs/I&O Vital Signs Date Time Temp Pulse Resp B/P B/P Pulse O2 O2 Flow FiO2 Mean Ox Delivery Rate 11/06 0703 97.6 80 18 132/86 98 11/05 2159 98.2 80 18 138/70 97 Room Air 11/05 1339 98.2 80 20 134/70 97 Intake & Output 11/06 1600 11/06 0800 11/06 0000 Intake Total 700 1010 Output Total Balance 700 1010 Intake, IV 600 10 Intake, Oral 100 1000 Physical Exam General Appearance: Alert, Oriented X3, Cooperative Other Physical Findings: Neck: Supple, No JVD Cardiovascular: Regular Rate, Normal S1, Normal S2, No Murmurs Lungs: Clear to Auscultation, Normal Air Movement Abdomen: Normal Bowel Sounds, Soft, No Tenderness, No Masses Extremities: No Clubbing, No Cyanosis, Normal Pulses, LLE wrapped and in knee immobilizer Current Medications: Current Medications Sig/Wanda Start time Last Medication Dose Route Stop Time Status Admin Acetaminophen 1,000 MG Q8 PRN 10/30 1551 AC 11/06 IV 0842 Apixaban 2.5 MG BID 11/06 1000 AC PO Carbamazepine 200 MG BID 10/30 2200 AC 11/05 PO 2128 Enoxaparin Sodium 40 MG DAILY 11/04 1000 DC 11/05 SC 0857 Hydroxyzine HCl 50 MG Q6 PRN 10/30 2000 AC 10/31 PO 1541 Methadone HCl 90 MG DAILY 10/29 1000 AC 11/05 PO 0857 Morphine Sulfate 10 MG .STK-MED ONE 11/05 1451 DC IV 11/05 1452 Morphine Sulfate 2 MG Q3P PRN 11/05 0802 AC 11/06 IV 0706 Morphine Sulfate 15 MG Q4P PRN 11/05 0800 AC 11/06 PO 0841 Polyethylene Glycol 17 GM DAILY 11/03 1000 AC 11/05 PO 0858 Senna/Docusate Sodium 1 TAB BID PRN 11/03 0815 AC 11/05 PO 0905 Assessment/Plan Assessment: 32-year-old female with past medical history significant for bipolar disease, recently hospitalized for suicidal attempt (overdose Tegretol), history of polysubstance abuse currently on methadone maintenance, BIBA after a fall and tonic-clonic seizure with LLE tibia and fibula fractures with extension to the ankle. Mechanical fall: possibly related to substance abuse Complicated by Left Distal left tibial and fibular fractures Orthopedics consulted post ORIF Thursday11/03/2017, delayed because of cocaine ingestion Continue analgesia with methadone + oral nacotics (MS contin and oxycodone vs MS IR(increased dose) should follow up with in 10 days for suture removal, appt time and date: 11/16/2017Thursday 1:15 PM [facility] methadone program in [place] was updated regarding possible dc with rapid release morphine No evidence of compartment syndrome. Creatine kinase normal pain Management was consulted for outpatient Mental illness/polysubstance abuse Psychology evaluation: rec start with tegretol BID, therapetic level Urine toxicology positive for opioids, methadone, and cocaine. she should follow up with [facility] for [facility] medications Opioid dependence: Continue methadone maintenance 90mg daily Seizures Seizure precautions. EEG showed dysrhythmic pattern. Neurology consult pending regular diet DVT [id number] BID 2.6 mg po Full code, Problem List: 1. Overdose of drug 2. Tibia/fibula fracture, shaft Pain Ratin Pain Location: left leg Pain Goal: Pain 4 or less Pain Plan: pain mangement consult Tomorrow's Labs & Rationales: cbc bep Maru Salas 11/06/17 1436: Attending MD Review Statement Attending Statement Attending MD Statement: examined this patient, discuss w/resident/PA/RETAIL LOSS PREVENTION OFFICER, agreed w/resident/PA/RETAIL LOSS PREVENTION OFFICER, reviewed EMR data (avail), discussed with nursing, discussed with case mgmt Attending Assessment/Plan: Will f/u on PT recommendations to decide on home with PT vs [facility]. d/w pt the care plan. d/w case management the care plan.
[2017-11-06 14:22] VITALS: BP 110/64
[2017-11-06] MEDS ORDERED: METHADONE HCL10 M1 PO (14:32)
[2017-11-06] MEDS ORDERED: ELIQUIS2.5 M1 PO (16:38)
--- NOTE | 2017-11-06 17:05 | Cons- Pain Management ---
General Information and HPI Consulting Request Date of Consult: 11/06/17 Requested By: Maru Salas MD History of Present Illness: I am asked to consult on this patient adnmitted to the floor following a tib/fib ORIF done on 11/03/2017. When I enter the area where I can see the patient, she is talkig loudly and pleasantly on the phone. She looks to be quite comfortable. She has a history of methadone and cocaie use and is currently in a methadone maintence program. She states she was clean for three months but started using heroin again about 3 weeks ago and was in and out of various hospitals and then on Thursday she fell and fractured her tib/fib. Her left tib fib is heavily wrapped in a splint. She has pedal pulses. She states her pain is controlled but she is worried about picking up her methadone dose when she is discharged. Allergies/Medications Allergies: Coded Allergies: Penicillins (Severe, ANAPHYLAXIS 04/23/16) Home Med List: Apixaban (Eliquis) 2.5 MG TABLET 2.5 MG PO BID dvt prophylaxis stop on 12/15/2017 (6 weeks) Carbamazepine 200 MG TABLET 200 MG PO BID mental health Chlordiazepoxide HCl 25 MG CAPSULE 50 MG PO Q6 WITHDRAWAL [place] Carbonate 300 MG TABLET 1 TAB PO TID BIPOLAR DISORDER Methadone Hydrochloride (Methadone HCl) 10 MG TABLET 90 MG PO DAILY mental health (Reported) Nicotine (Nicotine Patch) 21 MG/24 HOUR PATCH.TD24 21 MG TOP DAILY SMOKING CESSATION Nicotine (Nicorelief) 2 MG GUM 2 MG PO Q2P PRN tobacco craving Polyethylene Glycol 3350 (Miralax) 17 GRAM/DOSE POWDER 17 GM PO DAILY contipation Tramadol HCl 50 MG TABLET 1 TAB PO Q6P PRN LEG PAIN Ziprasidone Hydrochloride (Geodon 40MG Cap) 40 MG CAP 80 MG PO QPM MENTAL HEALTH (Reported) Ziprasidone Hydrochloride (Geodon) 20 MG CAPSULE 20 MG PO BID PRN AGITAT/ HALLUCINATION/IRRITABIL Twice daily PRN. Hold for prolonged QTc. Past History Medical History Blood Transfusion Hx No Neurological: migraine, seizure EENT: NONE Cardiovascular: NONE Respiratory: NONE Gastrointestinal: NONE Hepatic: NONE Renal: NONE Musculoskeletal: NONE Psychiatric: anxiety, bipolar disease, depression, insomnia Endocrine: NONE Blood Disorders: NONE Cancer(s): NONE TAPE LIBRARIAN/Reproductive: NONE Surgical History Surgical History: none Psychosocial History Where Do You Live? Home Smoking Status: Current Some Day Smoker Illicit Drug Use: heroin Educational History Highest Level of Education: high school/GED Special Communication Needs: None reported Exam & Diagnostic Data Last 24 Hrs of Vitals/I&Os: Vital Signs Date Time Temp Pulse Resp B/P B/P Pulse O2 O2 Flow FiO2 Mean Ox Delivery Rate 11/06 1422 98.0 84 20 110/64 97 Room Air 11/06 0703 97.6 80 18 132/86 98 11/05 2159 98.2 80 18 138/70 97 Room Air Intake & Output 11/06 1600 11/06 0800 11/06 0000 Intake Total 483 597 9555 Output Total Balance 744 901 9009 Intake, IV 600 10 Intake, Oral 322 199 6533 Physical Exam: Alert and oriented X3. She is resting comfortably.She is in no distress. Assessment/Plan Assessment/Plan: The following are my recommendations for this patient: - D/C IV Morphine - D/C MSIR 15mg Q4 - Begin Morphine ER 30mg po BID ATC - Begin vicodin 7.5mg po Q6 hours PRN for break through pain - Continue Methadone - On Discharge from hospital, make sure patient will be accepted into Methadone clinic. Please write her for a one day script for Methadone for Thursday 11/08 if pt is discharged on Thursday because Methadone clinic will be closed on Thursday 11/08. - No more than a 2 week supply of same amount of vicodin and MSER on discharge because post operative pain should last no more than 2 weeks so major post- operative pain should be gone by 11/17/2016. - PT consult - Social Work consult Consult Acknowledgment - Thank you for your consult request.
[2017-11-06 22:46] VITALS: BP 118/70
[2017-11-07 07:00] VITALS: BP 118/68
[2017-11-07] MEDS ORDERED: VICODIN ES 7.51 EACH PO (12:26)
[2017-11-07] MEDS ORDERED: MS CONTIN30 M1 PO (12:27)
--- NOTE | 2017-11-07 12:38 | PN- Att Addend ---
Attending Addendum Attending Brief Note Pt seen and examined. She is eager to leave for home today. She continues to complain of pain. On exam blood pressure is 118/68, pulse is 71, breathing at 16-18 and afebrile. Awake alert oriented, lungs are clear to auscultation, heart is S1-S2 regular, abdomen is soft and her left lower extremity is immobilized and dressed. She is a 32-year-old female chronic opiate dependence, bipolar disorder, status post fall with a left tib-fib fracture. She status postoperative intervention on November 03 and the major issue has been pain control. Appreciate pain management consult and we now have her on MS Contin 30 twice a day with Vicodin for breakthrough. I have given her a week's supply of the MS Contin and a week supply of the Vicodin and two days of methadone prescription i.e. 90 minute grams of methadone on 11/08 and 11/09, as her methadone clinic is closed on those 2 days. I have stressed outpatient follow-up with Dr. Álvarez. I've also stressed the Eliquis for 6 weeks while she is nonweightbearing, substance abuse cessation and will follow-up.
== END 2017-11-07 15:47 | disposition home health service (06) | DRG 313 ==
LOC: ERH 04:32 → ERHI 08:12 → 2NB 08:12 → ENRESERV 13:13 → 2NB 15:06 → ENTRNSPT 11-03 22:13 → CMPTRNSPT 11-03 22:42 → 2NB 11-04 14:01 → ENPENDDIS 11-07 13:24 → 2NB 11-07 15:47
PROVIDERS: Emergency Medicine; Internal Medicine; Student in an Organized Health Care Education/Training Program
PROC: 0QSH06Z Reposition Left Tibia with Intramedullary Internal Fixation Device, Open Approach (ICD-10-PCS; principal; 2017-11-03)
PROC: 0QSK04Z Reposition Left Fibula with Internal Fixation Device, Open Approach (ICD-10-PCS; principal; 2017-11-03)
DX: S82.235A Nondisplaced oblique fracture of shaft of left tibia, initial encounter for closed fracture (principal); R56.9 Unspecified convulsions; F11.20 Opioid dependence, uncomplicated; S82.832A Other fracture of upper and lower end of left fibula, initial encounter for closed fracture; S82.892A Other fracture of left lower leg, initial encounter for closed fracture; F31.9 Bipolar disorder, unspecified; F14.10 Cocaine abuse, uncomplicated; S82.302A Unspecified fracture of lower end of left tibia, initial encounter for closed fracture; W19.XXXA Unspecified fall, initial encounter
CPT/HCPCS: 2NBP; 36415; 73590-LT; 73610-LT; 80307; 81025; 82436; 93005; 93010; 95816; 96374; 96375; 97110-GO; 97116-GO; 97161-GP; 97530-GO; C1713; G0480; J0131; J1100; J1630; J1650; J1885; J2270; J2405; J3490; J7042; J7120